=== PATIENT | female | born 1950 | race Caucasian/White ===

== ENCOUNTER 2017-12-18 13:45 | Observation (INO) | payer OTHER ==
[~2017-12-18] VITALS: Ht 149.9 cm; Wt 81.8 kg
--- NOTE | 2017-12-18 14:44 | EMERGENCY ROOM VISIT NOTE ---
History Report prepared by Hiram: Shahzad Watosn Under the Supervision of: Dr. Douglas Ewing M.D. First contact with patient: 14:08 Chief Complaint: PAIN (GENERALIZED) Stated Complaint: NUMBESS AND TINGLING DOWN BODY History of Present Illness The patient is a 67 year old female who presents to the Emergency Room with complaints of worsening generalized numbness that began a couple of days ago. She rates her discomfort as an 8/10 in severity. The patient states that the numbness is located around her nose, lips, ears, arms, legs, and chest. The patient reports the numbing sensation is worse on her left side. She describes the sensation as if "novocaine is wearing off". The patient states that feeling starts off as a "hot feeling" which turns into a numbness. She states that she woke up with this morning with the numbness and reports the sensation has been constant since. She states that last night she experienced a headache. The patient states that she took an Ibuprofen for her headache without any relief. The patient states that she has also been experiencing back pain between her shoulder blades that started on the way to the ED. She reports that she is currently experiencing chest pain. The patient denies similar symptoms in the past, LOC, fevers, chills, diaphoresis, visual changes, neck pain, breathing difficulties, nausea, vomiting, abdominal pain, melena, hematochezia, urinary symptoms, weakness, lymphadenopathy, rash, or other complaints. She denies a history of TIA and stroke, but reports a history of MS and RA. She states she was diagnosed with MS at [facility] in 1979. The patient states her MS has been in remission since. Source of History: patient Onset: a couple of days ago Position: other (global) Symptom Intensity: 8/10 Quality: numbness Timing: worsening Associated Symptoms: + headache, + chest pain, + back pain Review of Systems See HPI for pertinent positives and negatives. A total of ten systems were reviewed and were otherwise negative. Past Medical & Surgical Medical Problems: (1) Acute pharyngitis (2) Laryngitis (3) Laryngitis (4) Multiple back surgeries (5) Multiple sclerosis (6) Rheumatoid arthritis Surgical Problems: (1) History of cervical spinal surgery (2) History of cholecystectomy Family History Diabetes mellitus Heart disease Hypertension Social History Smoking Status: Former Smoker Alcohol Use: none Occupation Status: unemployed Current/Historical Medications Scheduled Calcium Carbonate (Os-Ramon 500), 500 MG PO DAILY Cholecalciferol (Vitamin D3), Unknown Dose PO DAILY Cyclobenzaprine Hcl (Flexeril), 1 TAB PO HS Cyclosporine (Ophth) (Restasis), 1 DROP OPB BID Doxazosin Mesylate (Cardura), 4 MG PO DAILY Duloxetine Hcl (Cymbalta), 60 MG PO DAILY Ferrous Sulfate (Iron), 1 TAB PO DAILY Levothyroxine Sodium (Synthroid), 75 MCG PO DAILY Losartan Potassium (Cozaar), 100 MG PO DAILY Meloxicam (Mobic), 15 MG PO DAILY Omeprazole (Prilosec), 20 MG PO DAILY Allergies Coded Allergies: Vancomycin (Verified Allergy, Severe, HIVES, 12/18/17) Penicillins (Verified Allergy, Mild, ., 04/02/14) Hydroxychloroquine (Verified Allergy, Unknown, HIVES, 12/18/17) Latex1 -Allergic Contact Dermititis (Verified Allergy, Unknown, HIVES, ) Physical Exam Vital Signs Date Time Temp Pulse Resp B/P (MAP) Pulse Ox O2 Delivery O2 Flow Rate FiO2 12/18/17 17:15 89 27 88 12/18/17 17:09 92 18 136/93 95 Room Air 12/18/17 17:07 136/93 12/18/17 15:15 92 22 93 12/18/17 15:04 92 12/18/17 14:51 94 Room Air 12/18/17 13:49 36.8 110 20 147/86 93 Room Air Physical Exam GENERAL: Awake, alert, well appearing, no distress HENT: Normocephalic, atraumatic. TM's normal. Oropharynx unremarkable. EYES: PERRL. EOMI. Normal conjunctiva. Sclera non-icteric. NECK: Supple. No nuchal rigidity. FROM. No bruit. RESPIRATORY: Breath sounds equal. No wheezes. No rhonchi. CARDIAC: Normal rate. Regular rhythm. No murmurs. No rubs. No JVD. GI: Soft, non distended. No tenderness to palpation. No rebound or guarding. No masses. RECTAL: Deferred. MUSCULOSKELETAL: Unremarkable. No edema. No discoloration. Gross motor strength symmetric. Left upper extremity is in a shoulder immobilizer. Unable to asses range of motion of the left upper extremity secondary to preexisting shoulder injury. NEURO: Cranial nerves 2-12 grossly intact. Normal sensorium. No motor deficits noted. Speech normal. No pronator drift. Numbness in left hand which patient states is chronic. Subjective numbness in the left face and perioral region. SKIN: No rash or jaundice noted. LYMPH: No adenopathy. Medical Decision & Procedures ER Provider Diagnostic Interpretation: Radiology results as stated below per my review and radiologist interpretation: CHEST ONE VIEW PORTABLE CLINICAL HISTORY: Weakness COMPARISON STUDY: No previous studies for comparison. FINDINGS: The cardiac and mediastinal contours are normal. There is no evidence of focal pulmonary consolidation. There is no evidence of failure. No pleural effusions are visualized.[ There are bilateral shoulder arthroplasties. There is significant lucency surrounding the humeral component of the left shoulder arthroplasty. IMPRESSION: No active disease in the chest. Electronically signed by: Sebastian Stafford M.D. 12/18/2017 2:49 PM Dictated Date/Time: 12/18/2017 2:[address] HEAD WITHOUT CONTRAST (CT) CLINICAL HISTORY: Weakness, numbness. COMPARISON STUDY: No previous studies for comparison. TECHNIQUE: Axial CT of the brain is performed from the vertex to the skull base. IV contrast was not administered for this examination. A dose lowering technique was utilized adhering to the principles of ALARA. CT DOSE: 614.27 mGy.cm FINDINGS: No intra or extra-axial mass lesions are visualized. There is no CT evidence of acute cortical infarction. There is no evidence of midline shift. There is no acute hemorrhage. No calvarial fractures are visualized. There are patchy white matter hypodensities likely on a small vessel basis. There is no evidence of pathologic ventricular dilatation. There is no evidence of acute sinusitis. There are postsurgical changes within the upper cervical spine and skull base IMPRESSION: No acute intracranial findings Electronically signed by: Sebastian Stafford M.D. 12/18/2017 3:50 PM Dictated Date/Time: 12/18/2017 3:49 PM Laboratory Results 12/18/17 15:20 Red Blood Count 4.17, Mean Corpuscular Volume 90.4, Mean Corpuscular Hemoglobin 30.7, Mean Corpuscular Hemoglobin Concent 34.0, Mean Platelet Volume 8.9, Neutrophils (%) (Auto) 70.5, Lymphocytes (%) (Auto) 19.1, Monocytes (%) (Auto) 6.5, Eosinophils (%) (Auto) 3.2, Basophils (%) (Auto) 0.4, Neutrophils # (Auto) 4.81, Lymphocytes # (Auto) 1.30, Monocytes # (Auto) 0.44, Eosinophils # (Auto) 0.22, Basophils # (Auto) 0.03 12/18/17 15:20 Test 12/18/17 14:50 12/18/17 15:20 Urine Color YELLOW Urine Appearance CLOUDY (CLEAR) Urine pH 6.5 (4.5-7.5) Urine Specific [place] 1.006 (1.000-1.030) Urine Protein NEG (NEG) Urine Glucose (UA) NEG (NEG) Urine Ketones NEG (NEG) Urine Occult Blood NEG (NEG) Urine Nitrite NEG (NEG) Urine Bilirubin NEG (NEG) Urine Urobilinogen NEG (NEG) Urine Leukocyte Esterase NEG (NEG) Urine WBC (Auto) 0 /hpf (0-5) Urine RBC (Auto) 0-4 /hpf (0-4) Urine Hyaline Casts (Auto) 0 /lpf (0-5) Urine Epithelial Cells (Auto) 5-10 /lpf (0-5) Urine Bacteria (Auto) NEG (NEG) White Blood Count 6.82 K/uL (4.8-10.8) Red Blood Count 4.17 M/uL (4.2-5.4) Hemoglobin 12.8 g/dL (12.0-16.0) Hematocrit 37.7 % (37-47) Mean Corpuscular Volume 90.4 fL (80-100) Mean Corpuscular Hemoglobin 30.7 pg (25-34) Mean Corpuscular Hemoglobin Concent 34.0 g/dl (32-36) Platelet Count 366 K/uL (130-400) Mean Platelet Volume 8.9 fL (7.4-10.4) Neutrophils (%) (Auto) 70.5 % Lymphocytes (%) (Auto) 19.1 % Monocytes (%) (Auto) 6.5 % Eosinophils (%) (Auto) 3.2 % Basophils (%) (Auto) 0.4 % Neutrophils # (Auto) 4.81 K/uL (1.4-6.5) Lymphocytes # (Auto) 1.30 K/uL (1.2-3.4) Monocytes # (Auto) 0.44 K/uL (0.11-0.59) Eosinophils # (Auto) 0.22 K/uL (0-0.5) Basophils # (Auto) 0.03 K/uL (0-0.2) RDW Standard Deviation 44.8 fL (36.4-46.3) RDW Coefficient of Variation 13.4 % (11.5-14.5) Immature Granulocyte % (Auto) 0.3 % Immature Granulocyte # (Auto) 0.02 K/uL (0.00-0.02) Prothrombin Time 9.6 SECONDS (9.0-12.0) Prothromb Time International Ratio 0.9 (0.9-1.1) Activated Partial Thromboplast Time 29.8 SECONDS (21.0-31.0) Partial Thromboplastin Ratio 1.1 Anion Gap 7.0 mmol/L (3-11) Est Creatinine Clear Calc Drug Dose 62.7 ml/min Estimated GFR () 86.5 Estimated GFR (Non- 74.6 BUN/Creatinine Ratio 16.6 (10-20) Calcium Level 9.0 mg/dl (8.5-10.1) Magnesium Level 2.4 mg/dl (1.8-2.4) Total Bilirubin 0.2 mg/dl (0.2-1) Direct Bilirubin < 0.1 mg/dl (0-0.2) Aspartate Amino Transf (AST/SGOT) 14 U/L (15-37) Alanine Aminotransferase (ALT/SGPT) 15 U/L (12-78) Alkaline Phosphatase 113 U/L (45-117) Total Creatine Kinase 67 U/L (26-192) Creatine Kinase MB 1.5 ng/ml (0.5-3.6) Creatine Kinase MB Ratio 2.2 (0-3.0) Troponin I < 0.015 ng/ml (0-0.045) Total Protein 7.3 gm/dl (6.4-8.2) Albumin 3.6 gm/dl (3.4-5.0) Lipase 118 U/L (73-393) Thyroid Stimulating Hormone (TSH) 1.890 uIu/ml (0.300-4.500) Laboratory results reviewed by me Medications Administered Medications (Trade) Dose Ordered Sig/Tio Route Start Time Stop Time Status Last Admin Dose Admin Aspirin (Aspirin Chew) 324 mg NOW STAT PO 12/18/17 16:42 12/18/17 16:43 DC 12/18/17 17:07 324 MG ECG Per My Interpretation Indication: chest pain Rate (beats per minute): 96 Rhythm: normal sinus Findings: no acute ischemic change, no ectopy, other (Normal intervals) ED Course 1411: The patient was evaluated in room C12B. A complete history and physical exam was performed. 1638: I reevaluated the patient and she is doing well. I discussed her findings and treatment plan, which she agrees to. She will be further evaluated. 164: Ordered Aspirin 324 mg PO. 1645: I discussed the patients with Dr. Rhodes, [facility] Hospitalist. She understands the patients condition and agrees to accept the patient. The patient will be further evaluated. Medical Decision Triage Nursing notes reviewed. The patient's presentation and history were concerning for numbness, chest and back discomfort. Etiologies such as electrolyte abnormalities, cardiac sources, intracerebral event, MS, metabolic, infection, hypo/hyperglycemia, toxicologic, neurologic, as well as others were entertained. The patient was evaluated. She complained of numbness sensation that seemed to be mostly left-sided but did note some generalized perioral numbness. She had chest discomfort and back discomfort. Blood work, urinalysis, imaging and ECG obtained. The patient's CBC and chemistry panel were unremarkable. The patient had no significant abnormalities on laboratory workup. She had a head CT which did not show any acute findings. ECG was without ischemia. She notes vague neurologic symptoms that are more left sided. This concerning and further workup would be reasonable. She also had chest pain and back pain. I discussed this with the patient and family. She was given aspirin. Consultation was made with internal medicine. The patient was evaluated in the Emergency Room for further management. Medication Reconcilliation Current Medication List: was personally reviewed by me Blood Pressure Screening Patient's blood pressure: Elevated blood pressure Referred to Hospitalist. Impression Primary Impression: Left sided numbness Additional Impressions: Substernal chest pain Back pain Scribe Attestation The scribe's documentation has been prepared under my direction and personally reviewed by me in its entirety. I confirm that the note above accurately reflects all work, treatment, procedures, and medical decision making performed by me. Departure Information Dispostion Being Evaluated By Hospitalist Referrals Kathy Handley M.D. (PCP) Patient Instructions [facility] Problem Qualifiers
--- NOTE | 2017-12-18 14:50 | DIAGNOSTIC IMAGING REPORT ---
CHEST ONE VIEW PORTABLE CLINICAL HISTORY: Weakness COMPARISON STUDY: No previous studies for comparison. FINDINGS: The cardiac and mediastinal contours are normal. There is no evidence of focal pulmonary consolidation. There is no evidence of failure. No pleural effusions are visualized.[ There are bilateral shoulder arthroplasties. There is significant lucency surrounding the humeral component of the left shoulder arthroplasty. IMPRESSION: No active disease in the chest. Electronically signed by: Sebastian Stafford M.D. 12/18/2017 2:49 PM Dictated Date/Time: 12/18/2017 2:48 PM
[2017-12-18 15:35] LABS: BASO % 0.4 %; BASO ABS # 0.03 K/uL (0-0.2); EOS % 3.2 %; EOS ABS # 0.22 K/uL (0-0.5); HEMATOCRIT 37.7 % (37-47); HEMOGLOBIN 12.8 g/dL (12.0-16.0); IG# 0.02 K/uL (0.00-0.02); LYMPH % 19.1 %; MEAN CELL VOLUME 90.4 fL (80-100); MEAN CORPUSCULAR HEMOGLOBIN 30.7 pg (25-34); MEAN PLATELET VOLUME 8.9 fL (7.4-10.4); MONO % 6.5 %; MONO ABS # 0.44 K/uL (0.11-0.59); NEUT % 70.5 %; NEUT ABS # 4.81 K/uL (1.4-6.5); PLATELET COUNT 366 K/uL (130-400); RED CELL DISTRIBUTION WIDTH CV 13.4 % (11.5-14.5); RED CELL DISTRIBUTION WIDTH SD 44.8 fL (36.4-46.3); WHITE BLOOD COUNT 6.82 K/uL (4.8-10.8)
[2017-12-18 15:44] LABS: INR 0.9 (0.9-1.1); PTT PATIENT 29.8 SECONDS (21.0-31.0)
--- NOTE | 2017-12-18 15:51 | DIAGNOSTIC IMAGING REPORT ---
CT HEAD WITHOUT CONTRAST (CT) CLINICAL HISTORY: Weakness, numbness. COMPARISON STUDY: No previous studies for comparison. TECHNIQUE: Axial CT of the brain is performed from the vertex to the skull base. IV contrast was not administered for this examination. A dose lowering technique was utilized adhering to the principles of ALARA. CT DOSE: 614.27 mGy.cm FINDINGS: No intra or extra-axial mass lesions are visualized. There is no CT evidence of acute cortical infarction. There is no evidence of midline shift. There is no acute hemorrhage. No calvarial fractures are visualized. There are patchy white matter hypodensities likely on a small vessel basis. There is no evidence of pathologic ventricular dilatation. There is no evidence of acute sinusitis. There are postsurgical changes within the upper cervical spine and skull base IMPRESSION: No acute intracranial findings Electronically signed by: Sebastian Stafford M.D. 12/18/2017 3:50 PM Dictated Date/Time: 12/18/2017 3:49 PM
[2017-12-18 15:54] LABS: BLOOD UREA NITROGEN 13 mg/dl (7-18); CREATININE 0.81 mg/dl (0.60-1.20); GLUCOSE 101 mg/dl (70-99)
[2017-12-18 15:55] LABS: ALBUMIN 3.6 gm/dl (3.4-5.0); ALT/SGPT 15 U/L (12-78); CARBON DIOXIDE 28 mmol/L (21-32); LIPASE 118 U/L (73-393); SODIUM 140 mmol/L (136-145)
[2017-12-18 16:03] LABS: ALKALINE PHOSPHATASE 113 U/L (45-117); AST/SGOT 14 U/L (15-37); CKMB 1.5 ng/ml (0.5-3.6); TOTAL PROTEIN 7.3 gm/dl (6.4-8.2)
[2017-12-18] MEDS ORDERED: PRLSR20 PO (16:25)
[2017-12-18] MEDS ORDERED: CALC12502 PO (16:25)
[2017-12-18] MEDS ORDERED: FERR1TAB23 PO (16:25)
[2017-12-18] MEDS ORDERED: LEVO75TA PO (16:25)
[2017-12-18] MEDS ORDERED: DOXA4TAB2 PO (16:25)
[2017-12-18] MEDS ORDERED: LOSA100T65 PO (16:25)
[2017-12-18] MEDS ORDERED: CYCL0.052 OPB (16:25)
[2017-12-18] MEDS ORDERED: CYCL10TA6 PO (16:25)
[2017-12-18] MEDS ORDERED: MELO-84 PO (16:25)
[2017-12-18] MEDS ORDERED: DULO60CA44 PO (16:25)
[2017-12-18] MEDS ORDERED: CHOL1000 PO (16:25)
[2017-12-18] MEDS ORDERED: ASPIRIN 81 MG CHEW PO STA (16:42)
[2017-12-18] MEDS ORDERED: ACETAMINOPHEN 325 MG TAB PO PRN (17:45)
[2017-12-18] MEDS ORDERED: ONDANSETRON INJ 2 MG/ML 2 ML VIAL IV PRN (17:45)
[2017-12-18] MEDS ORDERED: PHARMACIST DISCHARGE MED REC CONSULT PRN (17:45)
[2017-12-18] MEDS ORDERED: MAGNESIUM HYDROXIDE SUSP 30 ML UDC PO PRN (17:45)
--- NOTE | 2017-12-18 17:58 | History and Physical ---
History & Physical Date & Time of Service: Dec 18, 2017 at 17:42 Chief Complaint: Numbess And Tingling Down Body Primary Care Physician: Reg Estrella History of Present Illness Source: patient 67 y/o F c/o L sided numbness and tingling. Pt states she initially noted n/t around her lips about 1 week ago after 3 days of mucinex DM use. She stopped taking this, but the n/t continued. Yesterday, she developed n/t along the entire L side of her face that she compares to being similar to having novocaine wearing off after a dental procedure. She also noted increased n/t to her L fingers and at times down her L LE. Pt has had several surgeries and infections of a L shoulder surgical site and has had n/t to her L hand for some time, but this was more intense. She does wear a sling generally while she awaits further surgical intervention "they keep screwing around and delaying it ". She has no facial paralysis or ticks, no confusion or speech issues. Pt was dx with MS in 1979. She did not have n/t with this dx. Her sx leading to dx were syncope and ambulatory issues. She has not had anything similar with the n/t. She does not take medications for her MS and has not seen a neurologist "in years" as she has not had any major flares. 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 She states that this was recently evaluated and it is stable. Pt states she gets SOB with prolonged housework, but not with usual walking or at rest. She did have some substernal chest pain that radiated to her shoulder blades earlier today, but this has resolved. Pt denies fever, abd pain, n/v/c/d , LE pain or swelling. Past Medical/Surgical History MS RA--off of meds while awaiting L shoulder surgery L shoulder immobility, awaiting 2nd opinion and possibly further OR. s/p several procedures and infection Hypothyroid GERD Iron deficiency b/l lung nodules, recently dx as an incidental finding with plans for f/u CT to monitor Family History Family history was reviewed; no changes noted. Social History Smoking Status: Former Smoker (quit x39 years) Alcohol Use: none Drug Use: none Occupational Status: unemployed Allergies Coded Allergies: Vancomycin (Verified Allergy, Severe, HIVES, 12/18/17) Penicillins (Verified Allergy, Mild, ., 04/02/14) Hydroxychloroquine (Verified Allergy, Unknown, HIVES, 12/18/17) Latex1 -Allergic Contact Dermititis (Verified Allergy, Unknown, HIVES, ) Home Medications Scheduled Calcium Carbonate (Os-Ramon 500), 500 MG PO DAILY Cholecalciferol (Vitamin D3), Unknown Dose PO DAILY Cyclobenzaprine Hcl (Flexeril), 1 TAB PO HS Cyclosporine (Ophth) (Restasis), 1 DROP OPB BID Doxazosin Mesylate (Cardura), 4 MG PO DAILY Duloxetine Hcl (Cymbalta), 60 MG PO DAILY Ferrous Sulfate (Iron), 1 TAB PO DAILY Levothyroxine Sodium (Synthroid), 75 MCG PO DAILY Losartan Potassium (Cozaar), 100 MG PO DAILY Meloxicam (Mobic), 15 MG PO DAILY Omeprazole (Prilosec), 20 MG PO DAILY Review of Systems Pertinent positives and negatives reviewed in HPI--all others negative Physical Exam Vital Signs Date Time Temp Pulse Resp B/P (MAP) Pulse Ox O2 Delivery O2 Flow Rate FiO2 12/18/17 17:09 92 18 136/93 95 Room Air 12/18/17 15:04 92 12/18/17 14:51 94 Room Air 12/18/17 13:49 36.8 110 20 147/86 93 Room Air General Appearance: WD/WN, no apparent distress Head: normocephalic, atraumatic Eyes: normal inspection, sclerae normal Respiratory/Chest: normal breath sounds, no respiratory distress Cardiovascular: regular rate, rhythm, no edema Abdomen/GI: non tender, soft Extremities/Musculoskelatal: no calf tenderness, no pedal edema Neurologic/Psych: crepe sole scourer II-XII nml as tested, alert, normal mood/affect, oriented x 3 Skin: normal color, warm/dry Diagnostics Laboratory Results Results Past 24 Hours Test 12/18/17 14:50 12/18/17 15:20 12/18/17 17:38 Range/Units Urine Color YELLOW Urine Appearance CLOUDY CLEAR Urine pH 6.5 4.5-7.5 Urine Specific [place] 1.006 1.000-1.030 Urine Protein NEG NEG Urine Glucose (UA) NEG NEG Urine Ketones NEG NEG Urine Occult Blood NEG NEG Urine Nitrite NEG NEG Urine Bilirubin NEG NEG Urine Urobilinogen NEG NEG Urine Leukocyte Esterase NEG NEG Urine WBC (Auto) 0 0-5 /hpf Urine RBC (Auto) 0-4 0-4 /hpf Urine Hyaline Casts (Auto) 0 0-5 /lpf Urine Epithelial Cells (Auto) 5-10 0-5 /lpf Urine Bacteria (Auto) NEG NEG White Blood Count 6.82 4.8-10.8 K/uL Red Blood Count 4.17 4.2-5.4 M/uL Hemoglobin 12.8 12.0-16.0 g/dL Hematocrit 37.7 37-47 % Mean Corpuscular Volume 90.4 80-100 fL Mean Corpuscular Hemoglobin 30.7 25-34 pg Mean Corpuscular Hemoglobin Concent 34.0 32-36 g/dl Platelet Count 366 130-400 K/uL Mean Platelet Volume 8.9 7.4-10.4 fL Neutrophils (%) (Auto) 70.5 % Lymphocytes (%) (Auto) 19.1 % Monocytes (%) (Auto) 6.5 % Eosinophils (%) (Auto) 3.2 % Basophils (%) (Auto) 0.4 % Neutrophils # (Auto) 4.81 1.4-6.5 K/uL Lymphocytes # (Auto) 1.30 1.2-3.4 K/uL Monocytes # (Auto) 0.44 0.11-0.59 K/uL Eosinophils # (Auto) 0.22 0-0.5 K/uL Basophils # (Auto) 0.03 0-0.2 K/uL RDW Standard Deviation 44.8 36.4-46.3 fL RDW Coefficient of Variation 13.4 11.5-14.5 % Immature Granulocyte % (Auto) 0.3 % Immature Granulocyte # (Auto) 0.02 0.00-0.02 K/uL Prothrombin Time 9.6 9.0-12.0 SECONDS Prothromb Time International Ratio 0.9 0.9-1.1 Activated Partial Thromboplast Time 29.8 21.0-31.0 SECONDS Partial Thromboplastin Ratio 1.1 Sodium Level 140 136-145 mmol/L Potassium Level 4.0 3.5-5.1 mmol/L Chloride Level 106 98-107 mmol/L Carbon Dioxide Level 28 21-32 mmol/L Anion Gap 7.0 3-11 mmol/L Blood Urea Nitrogen 13 7-18 mg/dl Creatinine 0.81 0.60-1.20 mg/dl Est Creatinine Clear Calc Drug Dose 62.7 ml/min Estimated GFR () 86.5 Estimated GFR (Non- 74.6 BUN/Creatinine Ratio 16.6 10-20 Random Glucose 101 70-99 mg/dl Calcium Level 9.0 8.5-10.1 mg/dl Magnesium Level 2.4 1.8-2.4 mg/dl Total Bilirubin 0.2 0.2-1 mg/dl Direct Bilirubin < 0.1 0-0.2 mg/dl Aspartate Amino Transf (AST/SGOT) 14 15-37 U/L Alanine Aminotransferase (ALT/SGPT) 15 12-78 U/L Alkaline Phosphatase 113 45-117 U/L Total Creatine Kinase 67 26-192 U/L Creatine Kinase MB 1.5 0.5-3.6 ng/ml Creatine Kinase MB Ratio 2.2 0-3.0 Troponin I < 0.015 0-0.045 ng/ml Total Protein 7.3 6.4-8.2 gm/dl Albumin 3.6 3.4-5.0 gm/dl Lipase 118 73-393 U/L Thyroid Stimulating Hormone (TSH) 1.890 0.300-4.500 uIu/ml Microbiology Results 12/18/17 Urine Culture, Received Pending Diagnostic Radiology CT head neg for acute CXR neg for acute Impression Assessment and Plan 67 y/o F who was admitted for observation on 12/18 for L sided numbness/tingling L sided n/t: CVA vs MS flare seem most likely dx CBC, PRP, TSH WNL Trop neg CT head neg for acute CXR and UA neg, urine cx pending MRI/MRA pending Neuro c/s pending PT/OT MS: no hx of medication use Does not follow with neuro due to stability L shoulder immobility: awaiting further OR intervention s/p multiple surgeries and infection Hypothyroid: TSH WNL RA: no current medications for this due to shoulder issues Other: Full code. Pt does not want prolonged mechanical life support or feeding tubes. Daughter is present and agrees AHA diet SCDs for DVT proph Level of Care Telemetry Resuscitation Status FULL RESUSCITATION VTE Prophylaxis VTE Risk Assessment Done? Y/N: Yes Risk Level: Low
[2017-12-18] MEDS ORDERED: IV FLUIDS COMPLETED PRN (19:00)
--- NOTE | 2017-12-18 19:21 | DIAGNOSTIC IMAGING REPORT ---
MR ANGIOGRAPHY OF THE [place] NO CONTRAST CLINICAL HISTORY: Stroke. Left-sided numbness. COMPARISON STUDY: None. A 3-D [id number] MR angiographic sequence of the [place] was performed. Both the source and projection images were reviewed. There is no evidence of major intracranial branch occlusion. There is no evidence of intracranial stenosis. There are no lesions suspicious for aneurysm. IMPRESSION: Unremarkable MR angiography of the [place]. Electronically signed by: Sebastian Stafford M.D. 12/18/2017 7:20 PM Dictated Date/Time: 12/18/2017 7:18 PM
--- NOTE | 2017-12-18 20:10 | DIAGNOSTIC IMAGING REPORT ---
MRI OF THE BRAIN WITHOUT AND WITH IV CONTRAST CLINICAL HISTORY: Stroke COMPARISON STUDY: Noncontrast head CT December 18, 2017 TECHNIQUE: MRI of the brain was performed from the vertex to the skull base utilizing various T1 and T2 weighted sequences. Following the IV administration of 8 mL of Gadavist contrast, additional enhanced images were obtained. FINDINGS: There is occipital artifact secondary to metallic plate seen within the occipital bone and upper cervical spine Sagittal T1, axial diffusion, proton density and T2 weighted axial, coronal FLAIR, and pre and post axial T1-weighted images were acquired. These were supplemented with post gadolinium coronal T1 weighted images. No intra or extra-axial mass lesions are visualized. Axial diffusion-weighted images reveal no evidence of acute or subacute infarction. There is no evidence of ventricular dilatation. Proton density T2-weighted and FLAIR images reveal scattered foci of increased T2 signal within the white matter, likely on a small vessel basis. There are no abnormal flow voids. There is no evidence of pathologic enhancement. There is a right parietal scalp nodule likely representing a sebaceous cyst IMPRESSION: 1. No evidence of acute or subacute infarction 2. No evidence of intracranial mass 3. Moderate foci of increased T2 signal within the white matter. This could be secondary to small vessel ischemic disease, or a demyelinating process Electronically signed by: Sebastian Stafford M.D. 12/18/2017 8:09 PM Dictated Date/Time: 12/18/2017 8:06 PM
--- NOTE | 2017-12-18 20:13 | DIAGNOSTIC IMAGING REPORT ---
NECK MRA HISTORY: Left-sided numbness suspected stroke TECHNIQUE: [id number] and gadolinium-enhanced MRA of the neck was performed both before and after the intravenous administration of contrast. All measurements were calculated based on NASCET criteria. The patient was administered 8 cc of intravenous Gadavist COMPARISON STUDY: None. FINDINGS: The aortic arch and proximal great vessels are widely patent. There is no significant stenosis, occlusion, or dissection identified within the bilateral common carotid, internal carotid, or vertebral arteries. IMPRESSION: No significant stenosis, occlusion, or dissection identified within the carotid or vertebral arteries. Electronically signed by: Sebastian Stafford M.D. 12/18/2017 8:12 PM Dictated Date/Time: 12/18/2017 8:10 PM
[2017-12-18 20:20] VITALS: BP 148/90; PULSE 92; TEMP 37.1; O2SAT 96; Ht 149.9 cm; Wt 81.8 kg
[2017-12-18] MEDS ORDERED: CYCLOBENZAPRINE HCL 10 MG TAB PO SCH (21:00)
[2017-12-18] MEDS: RESTASIS~ORDER AWAITING ACTION SCH (21:15)
[2017-12-18 23:56] VITALS: BP 149/81; PULSE 90; TEMP 36.8; O2SAT 94
[2017-12-19 04:47] VITALS: BP 134/76; PULSE 86; TEMP 36.7; O2SAT 91
[2017-12-19] MEDS ORDERED: LEVOTHYROXINE 75 MCG TAB PO SCH (06:00)
[2017-12-19 07:49] VITALS: BP 145/86; PULSE 89; TEMP 36.7; O2SAT 93
[2017-12-19 07:50] LABS: BASO % 0.7 %; BASO ABS # 0.05 K/uL (0-0.2); EOS % 4.9 %; EOS ABS # 0.35 K/uL (0-0.5); HEMATOCRIT 37.7 % (37-47); HEMOGLOBIN 12.8 g/dL (12.0-16.0); IG# 0.01 K/uL (0.00-0.02); LYMPH % 23.1 %; LYMPH ABS # 1.65 K/uL (1.2-3.4); MEAN CORPUSCULAR HEMOGLOBIN 30.5 pg (25-34); MEAN PLATELET VOLUME 8.9 fL (7.4-10.4); MONO % 8.3 %; MONO ABS # 0.59 K/uL (0.11-0.59); NEUT % 62.9 %; PLATELET COUNT 354 K/uL (130-400); RED CELL DISTRIBUTION WIDTH CV 13.5 % (11.5-14.5); RED CELL DISTRIBUTION WIDTH SD 44.6 fL (36.4-46.3); WHITE BLOOD COUNT 7.15 K/uL (4.8-10.8)
[2017-12-19] MEDS: RESTASIS~ORDER AWAITING ACTION SCH (08:00)
[2017-12-19 08:24] LABS: CALCIUM 8.9 mg/dl (8.5-10.1); CREATININE 0.77 mg/dl (0.60-1.20); POTASSIUM 3.9 mmol/L (3.5-5.1)
[2017-12-19] MEDS ORDERED: MELOXICAM 7.5 MG TAB PO SCH (09:00)
[2017-12-19] MEDS ORDERED: DULOXETINE HCL 60 MG CAP PO SCH (09:00)
[2017-12-19] MEDS ORDERED: CHOLECALCIFEROL 1000 INTER.UNIT TAB PO SCH (09:00)
[2017-12-19] MEDS ORDERED: CALCIUM CARBONATE 1250MG TAB PO SCH (09:00)
[2017-12-19] MEDS ORDERED: DOXAZosin MESYLATE TAB 4 MG TAB PO SCH (09:00)
[2017-12-19] MEDS ORDERED: FERROUS SULFATE 325 MG TAB PO SCH (09:00)
[2017-12-19] MEDS ORDERED: PANTOprazole SOD 40 MG TAB PO SCH (09:00)
[2017-12-19] MEDS ORDERED: LOSARTAN POTASSIUM 50 MG TAB PO SCH (09:00)
--- NOTE | 2017-12-19 10:30 | Neurology Consultation ---
Neurology Consultation Date of Consultation: Dec 19, 2017. Attending Physician: Pamela Rhodes DO Primary Care Physician: Reg Estrella Reason for Consultation: Numbness and tingling History of Present Illness Source: patient The patient is a 67-year-old female with a chief complaint of numbness. She complains of numbness affecting the left side of her face, especially around her nose and mouth, which began about 1 week ago. This symptom has been persistent and seemed to intensify 2 days ago. She has a history of chronic neck and left shoulder pain and has undergone multilevel cervical fusion about 10 years ago which left her with significant loss of motion. She is also currently being followed by an orthopedist for her left shoulder which requires additional surgical intervention. She has been wearing a left upper extremity brace with a sling that wraps around the right side of her neck since this past August. She complains that the sling is uncomfortable and does seem to aggravate her chronic neck pain. Past medical history is also notable for rheumatoid arthritis as well as he stated diagnosis of multiple sclerosis that was made in the . The patient recalls neurological evaluations at that time including a lumbar puncture area she recalls treatment with corticosteroids for this issue in the past. She has never been treated with moderate disease modifying therapies but indicates that her MS has been stable. She does not recall a history of optic neuritis. She does not have significant issues with bladder control. She does report chronic problems with mobility for which he uses either a cane or walker. Past Medical/Surgical History Medical Problems: (1) Back pain Status: Acute (2) Left sided numbness Status: Acute (3) Substernal chest pain Status: Acute Family History Family history notable for diabetes mellitus and coronary artery disease Social History Alcohol Use: none Drug Use: none Occupation Status: unemployed Allergies Coded Allergies: Vancomycin (Verified Allergy, Severe, HIVES, 12/18/17) Penicillins (Verified Allergy, Mild, ., 04/02/14) Hydroxychloroquine (Verified Allergy, Unknown, HIVES, 12/18/17) Latex1 -Allergic Contact Dermititis (Verified Allergy, Unknown, HIVES, ) Current Inpatient Medications Current Inpatient Medications Medications (Trade) Dose Ordered Sig/Tio Route Start Time Stop Time Status Last Admin Dose Admin Miscellaneous Information (Pharmacist Discharge Med Rec Consult) 1 ea UD PRN N/A 12/18/17 17:45 01/17/18 17:44 Acetaminophen (Tylenol Tab) 650 mg Q4H PRN PO 12/18/17 17:45 01/17/18 17:44 Magnesium Hydroxide (Milk Of Magnesia Susp) 30 ml Q12H PRN PO 12/18/17 17:45 01/17/18 17:44 Ondansetron HCl (Zofran Inj) 4 mg Q6H PRN IV 12/18/17 17:45 01/17/18 17:44 Calcium Carbonate (oS-Ramon 500 TAB) 1,250 mg DAILY PO 12/19/17 09:00 01/18/18 08:59 12/19/17 08:06 1,250 MG Cholecalciferol (Vitamin D Tab) 1,000 inter.unit DAILY PO 12/19/17 09:00 01/18/18 08:59 12/19/17 08:06 1,000 INTER.UNIT Cyclobenzaprine HCl (Flexeril Tab) 10 mg HS PO 12/18/17 21:00 01/17/18 20:59 12/18/17 21:15 10 MG Doxazosin Mesylate (Cardura Tab) 4 mg DAILY PO 12/19/17 09:00 01/18/18 08:59 12/19/17 08:06 4 MG Duloxetine HCl (Cymbalta Cap) 60 mg DAILY PO 12/19/17 09:00 01/18/18 08:59 12/19/17 08:06 60 MG Levothyroxine Sodium (Synthroid Tab) 75 mcg DAILYBB PO 12/19/17 06:00 01/18/18 05:59 12/19/17 05:53 75 MCG Losartan Potassium (coZAAR TAB) 100 mg DAILY PO 12/19/17 09:00 01/18/18 08:59 12/19/17 08:06 100 MG Meloxicam (Mobic Tab) 15 mg DAILY PO 12/19/17 09:00 01/18/18 08:59 12/19/17 08:05 15 MG Miscellaneous Information (Order Awaiting Action) 1 ea QS N/A 12/19/17 00:00 01/18/18 00:00 Ferrous Sulfate (Feosol Tab) 325 mg DAILY PO 12/19/17 09:00 01/18/18 08:59 2/25/18 08:06 325 MG Pantoprazole Sodium (Protonix Tab) 40 mg QAM PO 12/19/17 09:00 01/18/18 08:59 12/19/17 08:06 40 MG Miscellaneous (Iv Fluids Completed) 1 ea PRN PRN N/A 12/18/17 19:00 12/18/18 18:59 Review of Systems Constitutional: No fever or chills Eyes: No vision loss or diplopia Ears: No hearing loss or vertigo Cardiovascular: No chest pain or palpitations Respiratory: No coughing wheezing or shortness of breath Genitourinary: No incontinence Neurological: As per history of present illness Musculoskeletal: Significant for arthralgias and chronic neck pain Dermatologic: No lesions or rashes A full 10 point review of systems was obtained from this patient with pertinent positives and negatives described in the history of present illness and otherwise listed above. All remaining systems were reviewed and are negative. Physical Exam Vital Signs (Past 24 Hrs): Date Time Temp Pulse Resp B/P (MAP) Pulse Ox O2 Delivery O2 Flow Rate FiO2 12/19/17 07:49 36.7 89 18 145/86 (105) 93 Room Air 12/19/17 04:47 36.7 86 18 134/76 (95) 91 Room Air 12/19/17 04:00 Room Air 12/18/17 23:56 36.8 90 18 149/81 (103) 94 Room Air 12/18/17 23:30 Room Air 12/18/17 20:20 37.1 92 18 148/90 96 Room Air 12/18/17 18:40 36.8 97 21 145/100 93 12/18/17 18:15 97 21 12/18/17 17:47 145/100 12/18/17 17:45 87 15 93 12/18/17 17:15 89 27 88 12/18/17 17:09 92 18 136/93 95 Room Air 12/18/17 17:07 136/93 12/18/17 15:15 92 22 93 12/18/17 15:04 92 12/18/17 14:51 94 Room Air 12/18/17 13:49 36.8 110 20 147/86 93 Room Air The patient is a well-developed, well-nourished elderly female. She is sitting up in the bedside chair in no acute distress. She is alert and fully oriented. Recent and remote memory intact. Attention and concentration normal. Patient exhibits a normal spontaneous speech pattern as well as an age-appropriate fund of knowledge and normal vocabulary. Visual garcia full to confrontation. Visual acuity normal. Pupils equal round reactive to light and accommodation. Eye movements normal. No nystagmus. Facial sensation intact bilaterally for all 3 divisions of the trigeminal nerve. There is no facial droop. There is normal facial strength and symmetry. Hearing intact to finger rub bilaterally. Palate elevates to midline. Tongue protrudes to midline. Shoulder shrug strength intact bilaterally. Sensation intact to light touch, temperature, vibration, and proprioception for all 4 limbs. Deep tendon reflexes are hyperactive for the arms and legs in a symmetric fashion. Plantar responses are downgoing bilaterally. The second through fifth toes of the right foot have been amputated surgically in the remote past. There is no dysdiadochokinesia or dysmetria finger to nose on the right. Unable to assess the left due to chronic pain and immobility at the left shoulder. No dysmetria with heel to villagran bilaterally. Ophthalmoscopic examination reveals normal-appearing optic disks and posterior segments. No papilledema or hemorrhages. Carotid pulses normal bilaterally, no bruits to auscultation. Gait and station antalgic. Patient exhibits normal muscle strength and tone for all 4 limbs. Left upper extremity proximal strength testing limited due to chronic pain and immobility at the left shoulder. There is no atrophy. No abnormal movements observed. Arthritic deformity of the small joints of both hands appreciated. Laboratory Results Past 24 Hours: 12/19/17 07:30 Red Blood Count 4.19, Mean Corpuscular Volume 90.0, Mean Corpuscular Hemoglobin 30.5, Mean Corpuscular Hemoglobin Concent 34.0, Mean Platelet Volume 8.9, Neutrophils (%) (Auto) 62.9, Lymphocytes (%) (Auto) 23.1, Monocytes (%) (Auto) 8.3, Eosinophils (%) (Auto) 4.9, Basophils (%) (Auto) 0.7, Neutrophils # (Auto) 4.50, Lymphocytes # (Auto) 1.65, Monocytes # (Auto) 0.59, Eosinophils # (Auto) 0.35, Basophils # (Auto) 0.05 12/19/17 07:30 Test 12/18/17 14:50 12/18/17 15:20 12/19/17 07:30 Urine Color YELLOW Urine Appearance CLOUDY (CLEAR) Urine pH 6.5 (4.5-7.5) Urine Specific Jewett 1.006 (1.000-1.030) Urine Protein NEG (NEG) Urine Glucose (UA) NEG (NEG) Urine Ketones NEG (NEG) Urine Occult Blood NEG (NEG) Urine Nitrite NEG (NEG) Urine Bilirubin NEG (NEG) Urine Urobilinogen NEG (NEG) Urine Leukocyte Esterase NEG (NEG) Urine WBC (Auto) 0 /hpf (0-5) Urine RBC (Auto) 0-4 /hpf (0-4) Urine Hyaline Casts (Auto) 0 /lpf (0-5) Urine Epithelial Cells (Auto) 5-10 /lpf (0-5) Urine Bacteria (Auto) NEG (NEG) Prothrombin Time 9.6 SECONDS (9.0-12.0) Prothromb Time International Ratio 0.9 (0.9-1.1) Activated Partial Thromboplast Time 29.8 SECONDS (21.0-31.0) Partial Thromboplastin Ratio 1.1 Magnesium Level 2.4 mg/dl (1.8-2.4) Total Bilirubin 0.2 mg/dl (0.2-1) Direct Bilirubin < 0.1 mg/dl (0-0.2) Aspartate Amino Transf (AST/SGOT) 14 U/L (15-37) Alanine Aminotransferase (ALT/SGPT) 15 U/L (12-78) Alkaline Phosphatase 113 U/L (45-117) Total Creatine Kinase 67 U/L (26-192) Creatine Kinase MB 1.5 ng/ml (0.5-3.6) Creatine Kinase MB Ratio 2.2 (0-3.0) Total Protein 7.3 gm/dl (6.4-8.2) Albumin 3.6 gm/dl (3.4-5.0) Lipase 118 U/L (73-393) Thyroid Stimulating Hormone (TSH) 1.890 uIu/ml (0.300-4.500) Hepatitis C Antibody Screen NEG (NEG) White Blood Count 7.15 K/uL (4.8-10.8) Red Blood Count 4.19 M/uL (4.2-5.4) Hemoglobin 12.8 g/dL (12.0-16.0) Hematocrit 37.7 % (37-47) Mean Corpuscular Volume 90.0 fL (80-100) Mean Corpuscular Hemoglobin 30.5 pg (25-34) Mean Corpuscular Hemoglobin Concent 34.0 g/dl (32-36) Platelet Count 354 K/uL (130-400) Mean Platelet Volume 8.9 fL (7.4-10.4) Neutrophils (%) (Auto) 62.9 % Lymphocytes (%) (Auto) 23.1 % Monocytes (%) (Auto) 8.3 % Eosinophils (%) (Auto) 4.9 % Basophils (%) (Auto) 0.7 % Neutrophils # (Auto) 4.50 K/uL (1.4-6.5) Lymphocytes # (Auto) 1.65 K/uL (1.2-3.4) Monocytes # (Auto) 0.59 K/uL (0.11-0.59) Eosinophils # (Auto) 0.35 K/uL (0-0.5) Basophils # (Auto) 0.05 K/uL (0-0.2) RDW Standard Deviation 44.6 fL (36.4-46.3) RDW Coefficient of Variation 13.5 % (11.5-14.5) Immature Granulocyte % (Auto) 0.1 % Immature Granulocyte # (Auto) 0.01 K/uL (0.00-0.02) Anion Gap 7.0 mmol/L (3-11) Est Creatinine Clear Calc Drug Dose 64.8 ml/min Estimated GFR () 92.0 Estimated GFR (Non- 79.3 BUN/Creatinine Ratio 17.3 (10-20) Calcium Level 8.9 mg/dl (8.5-10.1) Troponin I < 0.015 ng/ml (0-0.045) Triglycerides Level 101 mg/dl (0-150) Cholesterol Level 238 mg/dl (0-200) HDL Cholesterol 52 mg/dl LDL Cholesterol, Calculated 166 mg/dl VLDL Cholesterol, Calculated 20 mg/dl Cholesterol/HDL Ratio 4.6 Imaging I reviewed the images and radiologist's interpretation of the recently completed brain MRI. The study reveals a moderate number of foci of increased T2 signal throughout the cerebral white matter. These changes are consistent with either chronic small vessel ischemic disease or demyelinating disease. No evidence of abnormal post contrast enhancement. No areas of restricted diffusion. No acute process. An MRA of the head and neck has also been completed. No significant abnormalities observed. No evidence of aneurysm, vasculitis, or vascular occlusion. Impression This is a 67-year-old female who complains of persistent left facial numbness for the past week occurring in the context of chronic neck and left shoulder pain with a history of multilevel cervical fusion, considerably reduced cervical mobility, and severe left shoulder arthropathy for which she has been wearing a left upper extremity sling which wraps around the right side of her neck. I do not find any evidence of numbness on her face despite her stated complaint. However, I suspect her reported sensory symptoms are cervicogenic in origin. There is no evidence of acute or subacute stroke or active demyelination on the recently completed brain MRI. Plan X-rays of the cervical spine MRI of the cervical spine with and without contrast If the above studies are negative for an acute process I would not have any further immediate recommendations. Continuing with her duloxetine, cyclobenzaprine, and meloxicam is appropriate. She will need to follow-up with her orthopedist on Wednesday as planned. I would not recommend treatment for her stated history of multiple sclerosis at this time. As there is no evidence of an acute MS exacerbation, I would not recommend corticosteroid therapy at this time. Please contact me if I may be of further assistance.
[2017-12-19 11:37] VITALS: BP 143/82; PULSE 100; TEMP 36.7; O2SAT 92
--- NOTE | 2017-12-19 11:48 | DIAGNOSTIC IMAGING REPORT ---
MRI CERVICAL SPINE COMBO CLINICAL HISTORY: Neck pain, numbness, myelopathy. TECHNIQUE: Sagittal and axial T1, T2 and STIR images were obtained. Imaging was performed before and after administration of 8 cc of intravenous Gadavist COMPARISON STUDY: No previous studies for comparison. There are no suspicious areas of marrow replacement. No intrinsic cervical cord lesions are visualized. C2-3: There is no evidence of disc bulge or focal herniation. There is no spinal or foraminal stenosis. C3-4: There is no evidence of disc bulge or focal herniation. There is no spinal or foraminal stenosis. C4-5: There are no disc bulges or focal herniations. There is no spinal or foraminal stenosis. C5-6 :There is a circumferential disc bulge. There is no significant spinal or foraminal stenosis. C6-7: There is a circumferential disc bulge. There is no significant spinal or foraminal stenosis C7-T1: There is no evidence of disc bulge or focal herniation. There is no evidence of spinal or foraminal stenosis. There is artifact secondary to extensive posterior spinal fusion. There are no pathologically enhancing lesions. IMPRESSION: 1. Postsurgical changes with evidence of a cervical/occipital fusion extending to the C5 level 2. Mild degenerative change 3. No cord lesions identified. No evidence of significant spinal stenosis Electronically signed by: Sebastian Stafford M.D. 12/19/2017 11:47 AM Dictated Date/Time: 12/19/2017 11:42 AM
--- NOTE | 2017-12-19 12:04 | DIAGNOSTIC IMAGING REPORT ---
C-SPINE ROUTINE 4 OR 5 VIEWS CLINICAL HISTORY: cervicalgia, numbness, myelopathy COMPARISON STUDY: No previous studies for comparison. FINDINGS: There is a cervical occipital fusion with C2-C5 pedicle screws and adjoining spinal rods. These attached to a occipital metallic plate and screws. There are multilevel degenerative changes. No fractures or subluxations are visualized. IMPRESSION: 1. Postsurgical change 2. Multilevel degenerative change 3. No fractures or subluxations identified Electronically signed by: Sebastian Stafford M.D. 12/19/2017 12:03 PM Dictated Date/Time: 12/19/2017 12:02 PM
[2017-12-19 14:38] VITALS: BP 143/82; PULSE 100; TEMP 36.7; O2SAT 92
--- NOTE | 2017-12-19 15:09 | Discharge Instructions ---
Discharge Instructions Date of Service Dec 19, 2017. Admission Reason for Admission: Left Sided Numbness Discharge Discharge Diagnosis / Problem: left sided numbess without any appearance of stroke or MS flare Discharge Goals Goal(s): Diagnostic testing, Therapeutic intervention Activity Recommendations Activity Limitations: resume your previous activity . Current Hospital Diet Patient's current hospital diet: AHA Diet (Heart Healthy) Discharge Diet Recommended Diet: AHA Diet (Heart Healthy) Pending Studies Studies pending at discharge: no Laboratory Results Hemoglobin A1c Test 12/18/17 15:20 Range/Units Lipid Panel Test 12/19/17 07:30 Range/Units Triglycerides Level 101 0-150 mg/dl Cholesterol Level 238 H 0-200 mg/dl HDL Cholesterol 52 mg/dl Cholesterol/HDL Ratio 4.6 LDL Cholesterol, Calculated 166 mg/dl Medical Emergencies . Who to Call and When: Medical Emergencies: If at any time you feel your situation is an emergency, please call 911 immediately. . Non-Emergent Contact Non-Emergency issues call your: Primary Care Provider . . "Provider Documentation" section prepared by Virgilio Wallis. . VTE Core Measure Inpt VTE Proph given/why not?: Treatment not indicated
--- NOTE | 2017-12-19 15:51 | Discharge Summary ---
Discharge Summary Date of Service Dec 19, 2017. Discharge Summary Admission Date: Dec 18, 2017 at 17:42 Discharge Date: Dec 19, 2017 Discharge Disposition: Home Principal Diagnosis: facial numbness (nonspecific etiology) Procedures: [~ rep ct add3]] MRI CERVICAL SPINE COMBO CLINICAL HISTORY: Neck pain, numbness, myelopathy. TECHNIQUE: Sagittal and axial T1, T2 and STIR images were obtained. Imaging was performed before and after administration of 8 cc of intravenous Gadavist COMPARISON STUDY: No previous studies for comparison. There are no suspicious areas of marrow replacement. No intrinsic cervical cord lesions are visualized. C2-3: There is no evidence of disc bulge or focal herniation. There is no spinal or foraminal stenosis. C3-4: There is no evidence of disc bulge or focal herniation. There is no spinal or foraminal stenosis. C4-5: There are no disc bulges or focal herniations. There is no spinal or foraminal stenosis. C5-6 :There is a circumferential disc bulge. There is no significant spinal or foraminal stenosis. C6-7: There is a circumferential disc bulge. There is no significant spinal or foraminal stenosis C7-T1: There is no evidence of disc bulge or focal herniation. There is no evidence of spinal or foraminal stenosis. There is artifact secondary to extensive posterior spinal fusion. There are no pathologically enhancing lesions. IMPRESSION: 1. Postsurgical changes with evidence of a cervical/occipital fusion extending to the C5 level 2. Mild degenerative change 3. No cord lesions identified. No evidence of significant spinal stenosis Electronically signed by: Sebastian Stafford M.D. 12/19/2017 11:47 AM MRI OF THE BRAIN WITHOUT AND WITH IV CONTRAST CLINICAL HISTORY: Stroke COMPARISON STUDY: Noncontrast head CT December 18, 2017 TECHNIQUE: MRI of the brain was performed from the vertex to the skull base utilizing various T1 and T2 weighted sequences. Following the IV administration of 8 mL of Gadavist contrast, additional enhanced images were obtained. FINDINGS: There is occipital artifact secondary to metallic plate seen within the occipital bone and upper cervical spine Sagittal T1, axial diffusion, proton density and T2 weighted axial, coronal FLAIR, and pre and post axial T1-weighted images were acquired. These were supplemented with post gadolinium coronal T1 weighted images. No intra or extra-axial mass lesions are visualized. Axial diffusion-weighted images reveal no evidence of acute or subacute infarction. There is no evidence of ventricular dilatation. Proton density T2-weighted and FLAIR images reveal scattered foci of increased T2 signal within the white matter, likely on a small vessel basis. There are no abnormal flow voids. There is no evidence of pathologic enhancement. There is a right parietal scalp nodule likely representing a sebaceous cyst IMPRESSION: 1. No evidence of acute or subacute infarction 2. No evidence of intracranial mass 3. Moderate foci of increased T2 signal within the white matter. This could be secondary to small vessel ischemic disease, or a demyelinating process Electronically signed by: Sebastian Stafford M.D. 12/18/2017 8:09 PM Dictated Date/Time: 12/18/2017 8:06 PM MR ANGIOGRAPHY OF THE [place] NO CONTRAST CLINICAL HISTORY: Stroke. Left-sided numbness. COMPARISON STUDY: None. A 3-D [id number] MR angiographic sequence of the [place] was performed. Both the source and projection images were reviewed. There is no evidence of major intracranial branch occlusion. There is no evidence of intracranial stenosis. There are no lesions suspicious for aneurysm. IMPRESSION: Unremarkable MR angiography of the [place]. Electronically signed by: Sebastian Stafford M.D. 12/18/2017 7:20 PM Dictated Date/Time: 12/18/2017 7:18 PM NECK MRA HISTORY: Left-sided numbness suspected stroke TECHNIQUE: [id number]-fo-rztebu and gadolinium-enhanced MRA of the neck was performed both before and after the intravenous administration of contrast. All measurements were calculated based on NASCET criteria. The patient was administered 8 cc of intravenous Gadavist COMPARISON STUDY: None. FINDINGS: The aortic arch and proximal great vessels are widely patent. There is no significant stenosis, occlusion, or dissection identified within the bilateral common carotid, internal carotid, or vertebral arteries. IMPRESSION: No significant stenosis, occlusion, or dissection identified within the carotid or vertebral arteries. Electronically signed by: Sebastian Stafford M.D. 12/18/2017 8:12 PM Dictated Date/Time: 12/18/2017 8:10 PM CHEST ONE VIEW PORTABLE CLINICAL HISTORY: Weakness COMPARISON STUDY: No previous studies for comparison. FINDINGS: The cardiac and mediastinal contours are normal. There is no evidence of focal pulmonary consolidation. There is no evidence of failure. No pleural effusions are visualized.[ There are bilateral shoulder arthroplasties. There is significant lucency surrounding the humeral component of the left shoulder arthroplasty. IMPRESSION: No active disease in the chest. Electronically signed by: Sebastian Stafford M.D. 12/18/2017 2:49 PM Dictated Date/Time: 12/18/2017 2:48 PM Last Resulted CBC 12/19/17 07:30 Red Blood Count 4.19, Mean Corpuscular Volume 90.0, Mean Corpuscular Hemoglobin 30.5, Mean Corpuscular Hemoglobin Concent 34.0, Mean Platelet Volume 8.9, Neutrophils (%) (Auto) 62.9, Lymphocytes (%) (Auto) 23.1, Monocytes (%) (Auto) 8.3, Eosinophils (%) (Auto) 4.9, Basophils (%) (Auto) 0.7, Neutrophils # (Auto) 4.50, Lymphocytes # (Auto) 1.65, Monocytes # (Auto) 0.59, Eosinophils # (Auto) 0.35, Basophils # (Auto) 0.05 Last Resulted BMP 12/19/17 07:30 Consultations: neurology: a/p: Imaging I reviewed the images and radiologist's interpretation of the recently completed brain MRI. The study reveals a moderate number of foci of increased T2 signal throughout the cerebral white matter. These changes are consistent with either chronic small vessel ischemic disease or demyelinating disease. No evidence of abnormal post contrast enhancement. No areas of restricted diffusion. No acute process. An MRA of the head and neck has also been completed. No significant abnormalities observed. No evidence of aneurysm, vasculitis, or vascular occlusion. Impression This is a 67-year-old female who complains of persistent left facial numbness for the past week occurring in the context of chronic neck and left shoulder pain with a history of multilevel cervical fusion, considerably reduced cervical mobility, and severe left shoulder arthropathy for which she has been wearing a left upper extremity sling which wraps around the right side of her neck. I do not find any evidence of numbness on her face despite her stated complaint. However, I suspect her reported sensory symptoms are cervicogenic in origin. There is no evidence of acute or subacute stroke or active demyelination on the recently completed brain MRI. Plan X-rays of the cervical spine MRI of the cervical spine with and without contrast If the above studies are negative for an acute process I would not have any further immediate recommendations. Continuing with her duloxetine, cyclobenzaprine, and meloxicam is appropriate. She will need to follow-up with her orthopedist on Wednesday as planned. I would not recommend treatment for her stated history of multiple sclerosis at this time. As there is no evidence of an acute MS exacerbation, I would not recommend corticosteroid therapy at this time. Please contact me if I may be of further assistance. <Electronically signed by Adam Ji MD> Medication Reconciliation Continued Medications: Calcium Carbonate (Os-Ramon 500) 1,250 Mg Tab 500 MG PO DAILY, TAB Cholecalciferol (Vitamin D3) 1,000 Unit Tab Unknown Dose PO DAILY for 90 Days, TAB 3 Refills Cyclobenzaprine Hcl (Flexeril) 10 Mg Tab 1 TAB PO HS for 30 Days, #30 TAB Cyclosporine (Ophth) (Restasis) 0.05 % Emu 1 DROP OPB BID, BTL Doxazosin Mesylate (Cardura) 4 Mg Tab 4 MG PO DAILY, TAB Duloxetine Hcl (Cymbalta) 60 Mg Cap 60 MG PO DAILY, CAP Ferrous Sulfate (Iron) 325 Mg Tab 1 TAB PO DAILY Levothyroxine Sodium (Synthroid) 75 Mcg Tab 75 MCG PO DAILY, TAB Losartan Potassium (Cozaar) 100 Mg Tab 100 MG PO DAILY, TAB Meloxicam (Mobic) 15 Mg Tab 15 MG PO DAILY, TAB Omeprazole (Prilosec) 20 Mg Capcr 20 MG PO DAILY, CAP Discharge Exam Physical Exam: General Appearance: no apparent distress Eyes: EOMI ENT: hearing grossly normal Neck: trachea midline Respiratory/Chest: no respiratory distress, no accessory muscle use Extremities: normal inspection Neurologic/Psychiatric: chair caner II-XII nml as tested, alert Skin: normal color, warm/dry Hospital Course came to ER w facial numbness - fortunately no evidence of stroke/MS flare/etc - exact etiology not clear, see neurology consult above. discussed further w/u vs knowing that worrisome and acute etiologies have been ruled out and that outpt f/u is safe - she strongly opted for the latter discharged home stable. Total Time Spent: Less than 30 minutes This includes examination of the patient, discharge planning, medication reconciliation, and communication with other providers. Discharge Instructions Please refer to the electronic Patient Visit Report (Discharge Instructions) for additional information.
[2017-12-20 07:04] LABS: HEMOGLOBIN A1C 5.2 % (4.5-5.6)
== END 2017-12-19 16:54 | disposition home or self-care (01) ==
LOC: C.EDB 13:48 → C.2T 17:42 → ENRESERV 18:20
PROVIDERS: ADMIT Family Medicine; ATTEND Family Medicine
DX: R20.0 Anesthesia of skin (principal); G35 Multiple sclerosis; M06.9 Rheumatoid arthritis, unspecified; E03.9 Hypothyroidism, unspecified; E61.1 Iron deficiency; K21.9 Gastro-esophageal reflux disease without esophagitis; Z83.3 Family history of diabetes mellitus; Z82.49 Family history of ischemic heart disease and other diseases of the circulatory system; Z87.891 Personal history of nicotine dependence; Z79.899 Other long term (current) drug therapy; Z88.0 Allergy status to penicillin; Z81.1 Family history of alcohol abuse and dependence; Z88.5 Allergy status to narcotic agent; Z91.040 Latex allergy status

== ENCOUNTER 2022-10-12 08:00 | Observation (INO) ==
[2022-10-12] MEDS ORDERED: SODIUM CHLORIDE 0.9% 500 ML IV STA (08:36)
[2022-10-12] MEDS ORDERED: NITROGLYCERIN SL 0.4 MG/TAB TAB ONE (08:36)
[2022-10-12] MEDS ORDERED: NITROGLYCERIN SL 0.4 MG/TAB TAB SL PRN (08:36)
[2022-10-12 09:00] LABS: Basophils # (auto) 0.06 K/uL (0-0.2); Basophils % (auto) 1.1 %; Eosinophils # (auto) 0.11 K/uL (0-0.50); Hematocrit (blood only) 39.3 % (34.1-44.9); Immature Granulocytes # (auto) 0.01 K/uL (0.00-0.02); Immature Granulocytes % (auto) 0.2 %; Lymphocytes # (auto) 1.55 K/uL (1.2-3.4); Lymphocytes % (auto) 28.3 %; Mean Corpuscular Hemoglobin 32.5 pg (25.0-34.0); Mean Corpuscular Hgb Conc 33.1 g/dL (32.0-36.0); Mean Corpuscular Volume 98.3 fL (80.0-100.0); Monocytes # (auto) 0.49 K/uL (0.24-0.82); Neutrophils # (auto) 3.25 K/uL (1.4-6.5); Neutrophils % (auto) 59.4 %; Platelet Count 342 K/uL (130-400); RDW Coefficient of Variation 13.2 % (11.5-14.5); RDW Standard Deviation 46.9 fL (36.4-46.3); White Blood Count 5.47 K/ul (4.8-10.8)
[2022-10-12 09:12] LABS: INR 0.9 (0.9-1.1); Prothrombin Time 10.1 Seconds (9.0-12.0)
--- NOTE | 2022-10-12 09:13 | Emergency Department Note ---
Impression & Plan Acute non-ST elevation myocardial infarction (NSTEMI), Chest pain, Elevated troponin I level, Lymphadenopathy ED Provider Note NAME: TAMIE NATH AGE: 71 SEX: F : 1950 ARRIVES VIA: Ambulance INFORMANT: [Patient][, ] ED PROVIDER(S): [Preston Morales MD] Chief Complaint: Chest pain HPI: Patient presents due to concern for chest pain that began upon waking this morning around 6 AM. The patient states that she felt diaphoretic. The patient does complain of a heaviness located over the upper chest. Patient states it does moved to her back. Patient was noted to be hypoxemic at 89% when EMS arrived. Patient did take a full dose aspirin this morning. Patient did have an associated nitro in route with only mild improvement. Patient is a former smoker no active smoking history cough or fever. No known sick contacts or recent travel. Patient denies any calf pain or leg swelling. No recent hospitalizations. ROS: See HPI for pertinent positives and negatives. A total of 10 systems were reviewed and otherwise negative. Past medical history: See below Surgical history: See below Social history: See below Physical Exam: GENERAL: NAD, [wearing a mask,] non-toxic. Nasal cannula place, wearing glasses. EYE EXAM: Normal conjunctiva. PERRL, no anisocoria and EOM's grossly intact w/o pain. NECK: Supple, no nuchal rigidity, no adenopathy, non-tender. No signs of meningismus. FROM of the neck with good chin to chest and neck extension. No stridor. LUNGS: Clear to auscultation. Normal chest wall mechanics. HEART: NSR, no MRG. ABDOMEN: Abdomen soft, non-tender, normo-active bowel sounds, no masses, no rebound or guarding. BACK: No CVA TTP. SKIN: No rashes and no bruising. UPPER EXTREMITIES: Upper extremities are grossly normal. LOWER EXTREMITIES: Grossly normal, no edema. NEURO EXAM: A&O x3, cranial nerves II-XII grossly intact, normal speech, moves all 4 extremities. Differential diagnoses: Cardiac ischemia, aortic dissection, pulmonary embolism, pneumothorax, pneumonia, pericarditis, myocarditis, esophageal rupture, GERD, cholecystitis, pancreatitis, musculoskeletal, as well as other pathologies. Course: Patient was seen and evaluated the bedside. Full history physical exam was performed. EKG interpreted by me Sinus, rate of 95, normal intervals normal axis no ST elevations. PVC noted Imaging Studies: See Below Cardiac monitoring: An order was placed for continuous cardiac monitoring. The monitor shows a rate of 78 with sinus rhythm. MDM: Patient presented due to concern for chest pain. Blood work is obtained along with an EKG troponin chest x-ray CT angiography of the chest. Patient was on 2 L nasal cannula. The patient was ordered nitro. Patient's initial EKG does not show any obvious ST elevations. The patient's blood work shows normal white count H&H and platelet count. Kidney function is unremarkable. Mild hypokalemia 3.4. Patient's initial troponin at 112. Heparin initially held as the patient was noted to be hypoxic and the patient had complained of chest pain with radiation to the back. Wanted to ensure ruling out a dissection prior to starting heparin. There was a delay in obtaining a CT angiogram as the patient's IV infiltrated did require a new IV start. Upon obtaining the new IV I did order repeat troponin. I did speak with on-call dial refinisher Dr. Conley given the patient's ongoing chest pain. He stated that if the patient's chest pain did not resolve that he will evaluate the patient at the bedside CT angiography does not show any evidence of PE. The patient does have mild left axillary lymphadenopathy. No pneumonia. The patient does have nodules which the patient already knew about before. Mild emphysema noted. Heparin ordered. I did go over the findings with the patient the patient's daughter at bedside. The patient had been ordered some morphine but reportedly her chest pain had resolved prior to receiving the morphine. I did convey this to Dr. Conley who did not request any additional in terventions at this time. The patient's repeat troponin was pending at the time of admission. I did speak with the on-call hospitalist Kylie Fraser PA-C the patient was admitted to the hospitalist service by Dr. Peters. Of note I did see that the patient's second troponin was elevated and cardiology had already been consulted by the primary medicine service. Critical Care: I have personally spent 45 minutes of critical care time in direct management of this patient. This includes bedside care, interpretation of diagnostic studies, and testing, discussion with consultants, patient, and family members, and other require inpatient management activities. This 45 minutes is in excess of all separately billable procedures. Past Med/Surg History Medical History (Updated 10/12/22 @ 13:57 by Preston Morales MD) Chest pain Multiple sclerosis Rheumatoid arthritis Surgical History History of cervical spinal surgery History of cholecystectomy Social History Smoking Status: Former smoker Hx Substance Use: No Preferred Language: Frisian Feels Safe at Home: Yes Allergies Allergies Allergy/AdvReac Type Severity Reaction Status Date / Time vancomycin Allergy Severe HIVES Verified 12/18/17 16:19 Penicillins Allergy Mild . Verified 04/02/14 14:49 hydroxychloroquine Allergy Unknown HIVES Verified 12/18/17 16:19 latex Allergy Unknown HIVES Verified 12/18/17 16:19 Home Meds Home Medications Medication Instructions Recorded Confirmed CALCIUM CARBONATE (OS-ALEX 500) 500 mg PO DAILY #0 tabs 12/18/17 CHOLECALCIFEROL (VITAMIN D3) PO DAILY 90 days #0 tabs 12/18/17 CYCLOBENZAPRINE HCL (FLEXERIL) 1 tab PO HS 30 days #30 tabs 12/18/17 CYCLOSPORINE (OPHTH) (RESTASIS) 1 drp OPB BID #0 BTLS 12/18/17 DOXAZOSIN MESYLATE (CARDURA) 4 mg PO DAILY #0 tabs 12/18/17 DULOXETINE HCL (CYMBALTA) 60 mg PO DAILY #0 caps 12/18/17 FERROUS SULFATE (IRON) 1 tab PO DAILY ##0 12/18/17 LEVOTHYROXINE SODIUM (SYNTHROID) 75 mcg PO DAILY #0 tabs 12/18/17 LOSARTAN POTASSIUM (COZAAR) 100 mg PO DAILY #0 tabs 12/18/17 MELOXICAM (MOBIC) 15 mg PO DAILY #0 tabs 12/18/17 OMEPRAZOLE (PRILOSEC) 20 mg PO DAILY #0 caps 12/18/17 Results & Data (ED) Vital Signs Vital Signs - 24 hr 10/12/22 08:19 10/12/22 08:19 10/12/22 08:19 Temperature 36.4 C L Temperature Source Oral Pulse Rate 89 83 Pulse Rate [Apical] Pulse Rate from SpO2 Sensor Pulse Rhythm Regular Regular Pulse Rhythm [Apical] Pulse Strength Normal Pulse Strength [Apical] Respiratory Rate 20 20 Respiratory Effort / Characteristics Non-Labored Spontaneous Respiratory Depth Normal Respiratory Pattern Regular Blood Pressure 154/81 H Blood Pressure [Right Arm] Blood Pressure Mean 105 Blood Pressure Mean [Right Arm] Blood Pressure Position Semi-fowlers Blood Pressure Position [Right Arm] Pulse Oximetry 89 L 89 L 95 Oxygen Delivery Method Room Air Room Air Nasal Cannula Oxygen Flow Rate 0 2 Sepsis Recent Fever Within 48 Hours No Sepsis New/Unexplained Change in Mental Status No Sepsis Action Taken by Nursing No Action Required Oxygen Flow Rate - Titration 2 Pulse Oximetry Post Tiitration 95 10/12/22 09:01 10/12/22 09:36 10/12/22 11:12 Temperature Temperature Source Pulse Rate 99 H Pulse Rate [Apical] 77 78 Pulse Rate from SpO2 Sensor 99 H Pulse Rhythm Pulse Rhythm [Apical] Regular Regular Pulse Strength Pulse Strength [Apical] Normal Normal Respiratory Rate 18 20 17 Respiratory Effort / Characteristics Non-Labored Spontaneous Non-Labored Spontaneous Respiratory Depth Normal Normal Respiratory Pattern Regular Regular Blood Pressure 194/80 H Blood Pressure [Right Arm] 151/73 H 157/84 H Blood Pressure Mean 118 Blood Pressure Mean [Right Arm] 99 108 Blood Pressure Position Blood Pressure Position [Right Arm] Semi-fowlers Semi-fowlers Pulse Oximetry 94 96 90 Oxygen Delivery Method Room Air Nasal Cannula Oxygen Flow Rate 2 2 Sepsis Recent Fever Within 48 Hours Sepsis New/Unexplained Change in Mental Status Sepsis Action Taken by Nursing Oxygen Flow Rate - Titration Pulse Oximetry Post Tiitration 10/12/22 11:21 10/12/22 11:30 10/12/22 12:30 Temperature Temperature Source Pulse Rate 82 80 84 Pulse Rate [Apical] Pulse Rate from SpO2 Sensor 82 80 83 Pulse Rhythm Pulse Rhythm [Apical] Pulse Strength Pulse Strength [Apical] Respiratory Rate 22 23 20 Respiratory Effort / Characteristics Respiratory Depth Respiratory Pattern Blood Pressure 150/68 H 154/79 H 156/77 H Blood Pressure [Right Arm] Blood Pressure Mean 95 104 103 Blood Pressure Mean [Right Arm] Blood Pressure Position Blood Pressure Position [Right Arm] Pulse Oximetry 97 97 96 Oxygen Delivery Method Oxygen Flow Rate Sepsis Recent Fever Within 48 Hours Sepsis New/Unexplained Change in Mental Status Sepsis Action Taken by Nursing Oxygen Flow Rate - Titration Pulse Oximetry Post Tiitration 10/12/22 13:13 Temperature Temperature Source Pulse Rate 84 Pulse Rate [Apical] Pulse Rate from SpO2 Sensor Pulse Rhythm Pulse Rhythm [Apical] Pulse Strength Pulse Strength [Apical] Respiratory Rate 20 Respiratory Effort / Characteristics Respiratory Depth Respiratory Pattern Blood Pressure 156/77 H Blood Pressure [Right Arm] Blood Pressure Mean Blood Pressure Mean [Right Arm] Blood Pressure Position Blood Pressure Position [Right Arm] Pulse Oximetry 96 Oxygen Delivery Method Room Air Oxygen Flow Rate Sepsis Recent Fever Within 48 Hours Sepsis New/Unexplained Change in Mental Status Sepsis Action Taken by Nursing Oxygen Flow Rate - Titration Pulse Oximetry Post Tiitration Home Medications Current Medication List: was personally reviewed by me Laboratory Data Attestation: I reviewed the patient's lab results. Result diagrams: 10/12/22 08:12 10/12/22 08:12 Lab Results 10/12/22 10/12/22 10/12/22 Range/Units 08:12 08:12 08:12 WBC 5.47 (4.8-10.8) K/ul RBC 4.00 (3.93-5.22) M/uL Hgb 13.0 (12.0-16.0) g/dl Hct 39.3 (34.1-44.9) % MCV 98.3 (80.0-100.0) fL MCH 32.5 (25.0-34.0) pg MCHC 33.1 (32.0-36.0) g/dL RDW Std Deviation 46.9 H (36.4-46.3) fL RDW Coeff of Juaquin 13.2 (11.5-14.5) % Plt Count 342 (130-400) K/uL MPV 10.0 (9.4-12.3) fL Immature Gran % (Auto) 0.2 % Neut % (Auto) 59.4 % Lymph % (Auto) 28.3 % Hoke % (Auto) 9.0 % Eos % (Auto) 2.0 % Baso % (Auto) 1.1 % Neut # (Auto) 3.25 (1.4-6.5) K/uL Lymph # (Auto) 1.55 (1.2-3.4) K/uL Hoke # (Auto) 0.49 (0.24-0.82) K/uL Eos # (Auto) 0.11 (0-0.50) K/uL Baso # (Auto) 0.06 (0-0.2) K/uL Immature Gran # (Auto) 0.01 (0.00-0.02) K/uL PT 10.1 (9.0-12.0) Seconds INR 0.9 (0.9-1.1) APTT 28.0 (21.0-31.0) Seconds PTT Ratio 1.0 Sodium 139 (136-145) mmol/L Potassium 3.4 L (3.5-5.1) mmol/L Chloride 103 (98-107) mmol/L Carbon Dioxide 29 (21-32) mmol/L Anion Gap 7 (3-11) BUN 14 (6-23) mg/dl Creatinine 0.80 (0.6-1.2) mg/dl Est Cr Clr Drug Dosing 60.1 ml/min Est GFR ( Amer) 85.4 ml/min Est GFR (Non-Af Amer) 73.7 ml/min BUN/Creatinine Ratio 17.5 (10-20) Glucose 101 H (70-99(Fasting)) mg/dl Calcium 9.5 (8.5-10.1) mg/dl Total Bilirubin 0.6 (0.2-1.0) mg/dl AST 35 (13-39) U/L ALT 33 (7-52) U/L Alkaline Phosphatase 78 (34-104) U/L Troponin I High Sens 112.1 H* (0-14) pg/ml Total Protein 8.1 (6.0-8.3) gm/dl Albumin 4.7 (3.4-5.0) gm/dl Globulin 3.4 (2.5-4.0) gm/dl Albumin/Globulin Ratio 1.4 (0.9-2) Lipase 23 (11-82) U/L SARS-CoV-2 (PCR) (Negative) Influenza Type A (PCR) (Neg) Influenza Type B (PCR) (Neg) RSV (RT-PCR) (Neg) 10/12/22 10/12/22 Range/Units 08:44 10:50 WBC (4.8-10.8) K/ul RBC (3.93-5.22) M/uL Hgb (12.0-16.0) g/dl Hct (34.1-44.9) % MCV (80.0-100.0) fL MCH (25.0-34.0) pg MCHC (32.0-36.0) g/dL RDW Std Deviation (36.4-46.3) fL RDW Coeff of Juaquin (11.5-14.5) % Plt Count (130-400) K/uL MPV (9.4-12.3) fL Immature Gran % (Auto) % Neut % (Auto) % Lymph % (Auto) % Hoke % (Auto) % Eos % (Auto) % Baso % (Auto) % Neut # (Auto) (1.4-6.5) K/uL Lymph # (Auto) (1.2-3.4) K/uL Hoke # (Auto) (0.24-0.82) K/uL Eos # (Auto) (0-0.50) K/uL Baso # (Auto) (0-0.2) K/uL Immature Gran # (Auto) (0.00-0.02) K/uL PT (9.0-12.0) Seconds INR (0.9-1.1) APTT (21.0-31.0) Seconds PTT Ratio Sodium (136-145) mmol/L Potassium (3.5-5.1) mmol/L Chloride (98-107) mmol/L Carbon Dioxide (21-32) mmol/L Anion Gap (3-11) BUN (6-23) mg/dl Creatinine (0.6-1.2) mg/dl Est Cr Clr Drug Dosing ml/min Est GFR ( Amer) ml/min Est GFR (Non-Af Amer) ml/min BUN/Creatinine Ratio (10-20) Glucose (70-99(Fasting)) mg/dl Calcium (8.5-10.1) mg/dl Total Bilirubin (0.2-1.0) mg/dl AST (13-39) U/L ALT (7-52) U/L Alkaline Phosphatase (34-104) U/L Troponin I High Sens 1815.4 H* D (0-14) pg/ml Total Protein (6.0-8.3) gm/dl Albumin (3.4-5.0) gm/dl Globulin (2.5-4.0) gm/dl Albumin/Globulin Ratio (0.9-2) Lipase (11-82) U/L SARS-CoV-2 (PCR) NEGATIVE (Negative) Influenza Type A (PCR) Negative (Neg) Influenza Type B (PCR) Negative (Neg) RSV (RT-PCR) Negative (Neg) Administered Medications Heparin Sodium/Dextrose (Heparin Sodium/Dextrose) 25,000 units in 500 mls @ 15 mls/hr IV .Q24H AYUSH; Protocol Stop: 11/11/22 11:44 Last Admin: 10/12/22 11:55 Dose: 750 units/hr, 15 mls/hr Documented By: LEROY Co-signed By: VENUS Nitroglycerin (Nitroglycerin Sl 0.4 Mg/Tab Tab) 0.4 mg SL UD PRN PRN Reason: Chest Pain Stop: 11/11/22 08:35 Last Admin: 10/12/22 08:39 Dose: 0.4 mg Documented By: ODIN Discontinued Medications Heparin Sodium/Dextrose (Heparin Iv Adult Wt-Based Low-Dose *No* Bolus Protocol) 1 each IV ONE ONE; Protocol Stop: 10/12/22 11:29 Last Admin: 10/12/22 11:56 Dose: Not Given Documented By: LEROY Sodium Chloride (Nss) 500 mls @ 500 mls/hr IV .Q1H STA Stop: 10/12/22 09:35 Last Infusion: 10/12/22 09:33 Dose: 0 mls/hr Documented By: Admin: 10/12/22 08:40 Dose: 500 mls/hr Documented By: ODIN Ioversol (Optiray 320 500ml) 106 ml IV ONCE ONE Stop: 10/12/22 11:16 Last Admin: 10/12/22 11:05 Dose: 106 ml Documented By: TIFFANY Morphine Sulfate (Morphine Sulfate 2 Mg/Ml Carp) 2 mg IV NOW STA Stop: 10/12/22 10:12 Last Admin: 10/12/22 10:53 Dose: 2 mg Documented By: LEROY Nitroglycerin (Nitroglycerin Sl 0.4 Mg/Tab Tab) Confirm Administered Dose 0.4 mg .ROUTE .STK-MED ONE Stop: 10/12/22 08:37 Last Admin: 10/12/22 08:39 Dose: Not Given Documented By: ODIN Imaging Data Radiologist's Impression: Chest X-Ray 10/12/22 08:18 XR chest 1V portable HISTORY: Nausea. Atypical Chest pain, nonspecific COMPARISON: Chest 12/18/2017. FINDINGS: No pneumothorax. No pleural effusions. No focal lung consolidations to suggest pneumonia. No evidence for pulmonary edema. The heart is normal in size. There are bilateral total shoulder arthroplasties. IMPRESSION: No acute process. ACT 112: Negative or not required by law. Electronically signed by: Erick Rojo M.D. 10/12/2022 9:22 AM Chest CTA 10/12/22 08:36 CHEST CTA for PULMONARY ARTERIES CT DOSE: 836.46 mGy.cm HISTORY: Atypical chest pain. Hypoxia. TECHNIQUE: Multiaxial CT images of the chest were performed following the intravenous administration of contrast to evaluate the pulmonary arteries. Maximal intensity projection images were also obtained. A dose lowering technique was utilized adhering to the principles of ALARA. COMPARISON STUDY: None. FINDINGS: The visualized liver, spleen, and adrenal glands are unremarkable. Mild to moderate degenerative disc disease within the thoracic spine. Normal caliber esophagus. Small hiatus hernia. No pleural or pericardial effusions. No mediastinal or hilar lymphadenopathy. The heart is normal in size. There is mild left axillary lymphadenopathy. Dominant axillary lymph nodes measure up to 1.7 x 1.2 cm. Normal caliber thoracic aorta with no evidence for a dissection. Moderate coronary artery calcifications are noted. The majority of the subsegmental pulmonary arteries are nondiagnostic due to the respiratory motion artifact and suboptimal timing of contrast. However, the remaining pulmonary arteries show no filling defects to suggest a pulmonary embolus. No pneumothorax. Mild central bronchial wall thickening is noted. Mild emphysema. A 5 mm groundglass nodule within the left upper lobe on image 211. A 4 mm subpleural nodule within the left upper lobe abutting the major fissure on image 223. A 2 mm left apical pulmonary nodule on image 259. A few small bibasilar linear densities likely representing scarring or subsegmental atelectasis. Otherwise, no focal lung consolidations to suggest a pneumonia. No evidence for pulmonary edema. Old, healed right-sided rib fractures. IMPRESSION: 1. No evidence for a pulmonary embolus. 2. Mild left axillary lymphadenopathy. [address] follow-up recommended to ensure resolution of this abnormality. 3. No focal lung consolidations to suggest a pneumonia. 4. Mild emphysema. 5. A few subcentimeter pulmonary nodules within the left upper lobe measure up to 5 mm. Please refer to the chart below. Please refer to below summary of Fleischner criteria recommendations for follow- up of incidental CT nodules (Santiago Huff, Guidelines for management of small pulmonary nodules detected on CT scans: A statement from the Fleischner Society, Radiology 237: [phone].) SOLID NODULES Solitary nodule size: <6 mm * Low risk patients: no follow-up needed * high risk patients: optional CT at 12 months Solitary nodule size: 6-8 mm * Low risk patients: follow-up at 6-12 months, then consider further follow-up at 18-24 months * high risk patients: initial follow-up CT at 6-12 months and then at 18-24 months if no change Solitary nodule size: >8 mm * either low or high risk patients - consider follow-up CT at 3 months, and/or CT-PET, and/or biopsy Multiple nodules size: <6 mm * Low risk patients: no routine follow-up * high risk patients: optional CT at 12 months Multiple nodules size: 6-8 mm * Low risk patients: follow-up at 3-6 months, then consider further follow-up at 18-24 months * high risk patients: follow-up at 3-6 months, then at 18-24 months if no change Multiple nodules size: >8 mm * Low risk patients: follow-up at 3-6 months, then consider further follow-up at 18-24 months * high risk patients: follow-up at 3-6 months, then at 18-24 months if no change Note: newly detected indeterminate nodule in persons 35 years of age or older. * Low risk patients: minimal or absent history of smoking and/or other known risk factors * high risk patients: history of smoking or of other known risk factors (e.g. first degree relative with lung cancer, or exposure to asbestos, radon, uranium) * if a nodule up to 8 mm is partly solid or is ground glass further follow-up is required after 24 months to exclude possible slow growing adenocarcinoma (MATTHEW) SUBSOLID NODULES Solitary pure ground-glass nodule * nodule size <6 mm - no CT follow-up required * nodule size >=6 mm - follow-up CT at 6-12 months, then every 2 years until 5 years Solitary part-solid nodule * nodule size <6 mm - no CT follow-up required * nodule size >=6 mm - follow-up CT at 3-6 months. If unchanged, and solid component remains <6 mm, then annual follow-up for 5 years Multiple subsolid nodules * nodule size <6 mm - follow-up CT at 3-6 months, consider further follow-up at 2 and 4 years if stable * nodule size >=6 mm - follow-up CT at 3-6 months, subsequent management based on the most suspicious nodule(s) ACT 112: Positive. There are findings on this exam that require communication between the performing entity and the patient following Patient Test Result Information Act ([place] Act 112) guidelines. Electronically signed by: Erick Rojo M.D. 10/12/2022 11:23 AM Discharge Plan Visit Data Chief Complaint: Chest Pain Stated Complaint: CHEST PAIN ED Provider: Preston Morales Discharge Problem: Acute non-ST elevation myocardial infarction (NSTEMI), Chest pain, Elevated troponin I level, Lymphadenopathy Discharge Instructions Interventions: ED Discharge Assessment Last Done: 10/12/22 13:13
--- NOTE | 2022-10-12 09:23 | XRay Report ---
XR chest 1V portable HISTORY: Nausea. Atypical Chest pain, nonspecific COMPARISON: Chest 12/18/2017. FINDINGS: No pneumothorax. No pleural effusions. No focal lung consolidations to suggest pneumonia. N o evidence for pulmonary edema. The heart is normal in size. There are bilateral total shoulder arthr oplasties. IMPRESSION: No acute process. ACT 112: Negative or not required by law. Electronically signed by: Erick Rojo M.D. 10/12/2022 9:22 AM
[2022-10-12 09:39] LABS: Influenza A virus by PCR Negative (Neg); Influenza B virus by PCR Negative (Neg); RSV by PCR Negative (Neg); SARS CoV2 RNA(COVID-19) Ceph NEGATIVE (Negative)
[2022-10-12 09:41] LABS: Troponin I High Sensitivity 112.1 pg/ml (0-14)
[2022-10-12 09:47] LABS: Albumin Globulin Ratio 1.4 (0.9-2); Albumin Level 4.7 gm/dl (3.4-5.0); BUN Creatinine Ratio 17.5 (10-20); Bilirubin,Total 0.6 mg/dl (0.2-1.0); Calcium 9.5 mg/dl (8.5-10.1); Creatinine Clr Calc Pharmacy 60.1 ml/min; Est GFR (African American) 85.4 ml/min; Est GFR (Non-African American) 73.7 ml/min; Globulin 3.4 gm/dl (2.5-4.0); Potassium 3.4 mmol/L (3.5-5.1); Total Protein 8.1 gm/dl (6.0-8.3)
[2022-10-12] MEDS ORDERED: MoRPHine SULFATE 2 MG/ML CARP IV STA (10:11)
[2022-10-12] MEDS ORDERED: OPTIRAY 320 500ml IV ONE (11:15)
--- NOTE | 2022-10-12 11:26 | CT Scan Report ---
CHEST CTA for PULMONARY ARTERIES CT DOSE: 836.46 mGy.cm HISTORY: Atypical chest pain. Hypoxia. TECHNIQUE: Multiaxial CT images of the chest were performed following the intravenous administration of contrast to evaluate the pulmonary arteries. Maximal intensity projection images were also obtaine d. A dose lowering technique was utilized adhering to the principles of ALARA. COMPARISON STUDY: None. FINDINGS: The visualized liver, spleen, and adrenal glands are unremarkable. Mild to moderate degener ative disc disease within the thoracic spine. Normal caliber esophagus. Small hiatus hernia. No pleur al or pericardial effusions. No mediastinal or hilar lymphadenopathy. The heart is normal in size. Th ere is mild left axillary lymphadenopathy. Dominant axillary lymph nodes measure up to 1.7 x 1.2 cm. Normal caliber thoracic aorta with no evidence for a dissection. Moderate coronary artery calcificati ons are noted. The majority of the subsegmental pulmonary arteries are nondiagnostic due to the respi ratory motion artifact and suboptimal timing of contrast. However, the remaining pulmonary arteries s how no filling defects to suggest a pulmonary embolus. No pneumothorax. Mild central bronchial wall t hickening is noted. Mild emphysema. A 5 mm groundglass nodule within the left upper lobe on image 211 . A 4 mm subpleural nodule within the left upper lobe abutting the major fissure on image 223. A 2 mm left apical pulmonary nodule on image 259. A few small bibasilar linear densities likely representin g scarring or subsegmental atelectasis. Otherwise, no focal lung consolidations to suggest a pneumoni a. No evidence for pulmonary edema. Old, healed right-sided rib fractures. IMPRESSION: 1. No evidence for a pulmonary embolus. 2. Mild left axillary lymphadenopathy. [address] follow-up recommended to ensure resolution of this abnormality. 3. No focal lung consolidations to suggest a pneumonia. 4. Mild emphysema. 5. A few subcentimeter pulmonary nodules within the left upper lobe measure up to 5 mm. Please refer to the chart below. Please refer to below summary of Fleischner criteria recommendations for follow-up of incidental CT n odules (Santiago Huff, Guidelines for management of small pulmonary nodules detected on CT scans: A sta tement from the Fleischner Society, Radiology 237: [phone].) SOLID NODULES Solitary nodule size: <6 mm * Low risk patients: no follow-up needed * high risk patients: optional CT at 12 months Solitary nodule size: 6-8 mm * Low risk patients: follow-up at 6-12 months, then consider further follow-up at 18-24 months * high risk patients: initial follow-up CT at 6-12 months and then at 18-24 months if no change Solitary nodule size: >8 mm * either low or high risk patients - consider follow-up CT at 3 months, and/or CT-PET, and/or biopsy Multiple nodules size: <6 mm * Low risk patients: no routine follow-up * high risk patients: optional CT at 12 months Multiple nodules size: 6-8 mm * Low risk patients: follow-up at 3-6 months, then consider further follow-up at 18-24 months * high risk patients: follow-up at 3-6 months, then at 18-24 months if no change Multiple nodules size: >8 mm * Low risk patients: follow-up at 3-6 months, then consider further follow-up at 18-24 months * high risk patients: follow-up at 3-6 months, then at 18-24 months if no change Note: newly detected indeterminate nodule in persons 35 years of age or older. * Low risk patients: minimal or absent history of smoking and/or other known risk factors * high risk patients: history of smoking or of other known risk factors (e.g. first degree relative with lung cancer, or exposure to asbestos, radon, uranium) * if a nodule up to 8 mm is partly solid or is ground glass further follow-up is required after 24 m onths to exclude possible slow growing adenocarcinoma (MATTHEW) SUBSOLID NODULES Solitary pure ground-glass nodule * nodule size <6 mm - no CT follow-up required * nodule size >=6 mm - follow-up CT at 6-12 months, then every 2 years until 5 years Solitary part-solid nodule * nodule size <6 mm - no CT follow-up required * nodule size >=6 mm - follow-up CT at 3-6 months. If unchanged, and solid component remains <6 mm, then annual follow-up for 5 years Multiple subsolid nodules * nodule size <6 mm - follow-up CT at 3-6 months, consider further follow-up at 2 and 4 years if sta ble * nodule size >=6 mm - follow-up CT at 3-6 months, subsequent management based on the most suspiciou s nodule(s) ACT 112: Positive. There are findings on this exam that require communication between the performing entity and the patient following Patient Test Result Information Act ([place] Act 112) guidelines. Electronically signed by: Erick Rojo M.D. 10/12/2022 11:23 AM
[2022-10-12] MEDS ORDERED: Heparin IV Adult Wt-Based Low-Dose *NO* Bolus Protocol IV ONE (11:28)
--- NOTE | 2022-10-12 11:40 | History & Physical Report ---
Date of Service October 12, 2022 Assessment & Plan (1) Acute non-ST elevation myocardial infarction (NSTEMI): Plan: - Onset of central chest pain with radiation to back 6AM this morning with associated diaphoresis. - Initial trop 112, EKG with some nonspecific T wave abnormalities, chest pain alleviated 1 hour after 2nd nitro dose/before morphine. - 2 hour troponin 1815. - Echo: EF 60-65%, severe hypokinesis on base of mid inferoseptum, no LVH, normal LV size and systolic function, normal RVSP. - Patient started on low dose heparin w/p bolus in ED--given significant change in troponin, will order heparin bolus. - Cardiology consulted, appreciate their assistance and recommendations with this patient--> patient to assistant laboratory director this afternoon. (2) Rheumatoid arthritis: Plan: - Continue leflunomide. (3) Hypertension: Plan: - Continue losartan, doxazosin, amlodipine. (4) Multiple sclerosis: Plan - Admit to PCU. - SCDs, heparin gtt for VTE ppx. - Full Code. History of Present Illness Chief Complaint: chest pain x 4 hours Primary Care Provider: Reg Estrella MD Flower Álvarez is a 71 y/o with a past medical history significant for MS, rheumatoid arthritis, hypothyroidism, hypertension, and GERD who is presenting today with chest pain. She woke up this morning around 6 AM drenched in sweat with chest pressure in the center of her chest with radiation to her back. She took full dose aspirin at home and called 911. She received a dose of nitro via EMS which minimally alleviated her symptoms, as well as an additional dose in our ED. About an hour after the second chest nitro chest pain seemingly went away quickly patient was ambulating around her room without any chest pain, shortness of breath, or palpitations. She has no history of heart disease or dysrhythmias. She was in her usual state of health this weekend and exercises 2x/week at the local [place] without chest pain or shortness of breath. On presentation she is 89% on room air, placed on 2 L NC, she has been somewhat hypertensive in ED, otherwise VSS, wnl. Troponin elevated at 112. EKG with nonspecific T wave abnormalities, chest CTA without evidence of pulmonary emboli, pneumonia, dissection. There is mild left axillary lymphadenopathy, mild emphysema, few subcentimeter pulmonary nodules within left upper lobe. Allergies Allergy/AdvReac Type Severity Reaction Status Date / Time vancomycin Allergy Severe HIVES Verified 12/18/17 16:19 Penicillins Allergy Mild . Verified 04/02/14 14:49 hydroxychloroquine Allergy Unknown HIVES Verified 12/18/17 16:19 latex Allergy Unknown HIVES Verified 12/18/17 16:19 Home Medications Medication Instructions Recorded Confirmed Type CALCIUM CARBONATE (OS-ALEX 500) 500 mg PO DAILY #0 tabs 12/18/17 10/12/22 History CHOLECALCIFEROL (VITAMIN D3) 1,000 units PO DAILY 90 days #0 12/18/17 10/12/22 History tabs CYCLOBENZAPRINE HCL (FLEXERIL) 1 tab PO HS 30 days #30 tabs 12/18/17 10/12/22 History CYCLOSPORINE (OPHTH) (RESTASIS) 1 drp OPB BID #0 BTLS 12/18/17 10/12/22 History DOXAZOSIN MESYLATE (CARDURA) 4 mg PO DAILY #0 tabs 12/18/17 10/12/22 History DULOXETINE HCL (CYMBALTA) 60 mg PO DAILY #0 caps 12/18/17 10/12/22 History FERROUS SULFATE (IRON) 1 tab PO DAILY ##0 12/18/17 10/12/22 History LEVOTHYROXINE SODIUM (SYNTHROID) 75 mcg PO DAILY #0 tabs 12/18/17 10/12/22 History LOSARTAN POTASSIUM (COZAAR) 100 mg PO DAILY #0 tabs 12/18/17 10/12/22 History OMEPRAZOLE (PRILOSEC) 20 mg PO DAILY #0 caps 12/18/17 10/12/22 History abatacept 125 mg/mL subcutaneous 125 mg subcut WK 10/12/22 10/12/22 History auto-injector (Orencia ClickJect) amlodipine 5 mg tablet 5 mg PO DAILY 10/12/22 10/12/22 History diazepam 10 mg tablet 10 mg PO TID PRN Anxiety 10/12/22 10/12/22 History ezetimibe 10 mg tablet 10 mg PO DAILY 10/12/22 10/12/22 History leflunomide 20 mg tablet 20 mg PO DAILY 10/12/22 10/12/22 History sulfasalazine 500 mg tablet 1,000 mg PO BID 10/12/22 10/12/22 History Past Med/Surg History Medical History (Updated 10/12/22 @ 22:03 by Willard Conley MD) Chest pain Dyslipidemia GERD (gastroesophageal reflux disease) Hypertension Hypothyroidism Multiple sclerosis Rheumatoid arthritis Surgical History History of cervical spinal surgery History of cholecystectomy Social History Smoking Status: Former smoker Hx Alcohol Use: No Hx Substance Use: No Preferred Language: German Communication Ability: Effective Station Cashier Required: No Beliefs That Will Affect Care: None Current Living Situation: Alone Feels Safe at Home: Yes Assistive Devices: None Review of Systems Review of Systems: Constitutional: No fever/chills, weakness, fatigue, myalgias, anorexia, night sweats Eyes: No diplopia, no worsening or blurred vision ENT: normal hearing, no trouble swallowing Respiratory: No cough, sputum, dyspnea at rest or on exertion Cardiovascular: chest pressure radiating to back with diaphoresis upon waking up this AM now resolved; no palpitations. Abdomen: No pain, nausea, vomiting, diarrhea or constipation : Denies dysuria, hematuria, increased urgency/frequency, urinary retention Musculoskeletal: No joint pain, calf pain, swelling Neurologic: No weakness, numbness/tingling, or balance problems Psychiatric: No anxiety or depression Skin: No rash or itch Physical Exam Physical Exam: General: awake, alert, no apparent distress Head: Normocephalic, atraumatic ENT: PERRL, EOMI, no pharyngeal exudate, mucous membranes moist Chest: Clear to auscultation, on room air, no adventitious breath sounds Cardiac: Regular rate and rhythm, no murmur, no JVD, normal peripheral pulses, good capillary refill Abdominal: NABS x 4 quadrants, soft, nontender to palpation, no rebound, guarding or tenderness Extremities: Normal inspection, no peripheral edema or erythema, calfs nontender to palpation Psych: Normal mood and affect Neuro: AAO x 3, strength intact bilaterally and rated 5/5, no motor deficits, speech is clear, no peripheral sensory deficits Skin: no rash or erythema Results & Data Results & Data ([facility]) Vital Signs (Past 12 Hours) Vital Signs Temp Pulse Pulse Resp BP BP Pulse Ox 10/12/22 09:36 78 20 157/84 H 96 10/12/22 09:01 77 18 151/73 H 94 10/12/22 08:19 83 20 95 10/12/22 08:19 89 L 10/12/22 08:19 36.4 C L 89 20 154/81 H 89 L O2 Del Method O2 Flow Rate 10/12/22 09:36 Nasal Cannula 2 10/12/22 09:01 Room Air 2 10/12/22 08:19 Nasal Cannula 2 10/12/22 08:19 Room Air 0 10/12/22 08:19 Room Air Laboratory Results Abnormal lab results 10/12/22 10/12/22 Range/Units 08:12 08:12 RDW Std Deviation 46.9 H (36.4-46.3) fL Potassium 3.4 L (3.5-5.1) mmol/L Glucose 101 H (70-99(Fasting)) mg/dl Troponin I High Sens 112.1 H* (0-14) pg/ml Diagnostic Findings Chest X-Ray 10/12/22 08:18 XR chest 1V portable HISTORY: Nausea. Atypical Chest pain, nonspecific COMPARISON: Chest 12/18/2017. FINDINGS: No pneumothorax. No pleural effusions. No focal lung consolidations to suggest pneumonia. No evidence for pulmonary edema. The heart is normal in size. There are bilateral total shoulder arthroplasties. IMPRESSION: No acute process. ACT 112: Negative or not required by law. Electronically signed by: Erick Rojo M.D. 10/12/2022 9:22 AM Chest CTA 10/12/22 08:36 CHEST CTA for PULMONARY ARTER[address] DOSE: 836.46 mGy.cm HISTORY: Atypical chest pain. Hypoxia. TECHNIQUE: Multiaxial CT images of the chest were performed following the intravenous administration of contrast to evaluate the pulmonary arteries. Maximal intensity projection images were also obtained. A dose lowering technique was utilized adhering to the principles of ALARA. COMPARISON STUDY: None. FINDINGS: The visualized liver, spleen, and adrenal glands are unremarkable. Mild to moderate degenerative disc disease within the thoracic spine. Normal caliber esophagus. Small hiatus hernia. No pleural or pericardial effusions. No mediastinal or hilar lymphadenopathy. The heart is normal in size. There is mild left axillary lymphadenopathy. Dominant axillary lymph nodes measure up to 1.7 x 1.2 cm. Normal caliber thoracic aorta with no evidence for a dissection. Moderate coronary artery calcifications are noted. The majority of the subsegmental pulmonary arteries are nondiagnostic due to the respiratory motion artifact and suboptimal timing of contrast. However, the remaining pulmonary arteries show no filling defects to suggest a pulmonary embolus. No pneumothorax. Mild central bronchial wall thickening is noted. Mild emphysema. A 5 mm groundglass nodule within the left upper lobe on image 211. A 4 mm subpleural nodule within the left upper lobe abutting the major fissure on image 223. A 2 mm left apical pulmonary nodule on image 259. A few small bibasilar linear densities likely representing scarring or subsegmental atelectasis. Otherwise, no focal lung consolidations to suggest a pneumonia. No evidence for pulmonary edema. Old, healed right-sided rib fractures. IMPRESSION: 1. No evidence for a pulmonary embolus. 2. Mild left axillary lymphadenopathy. [address] follow-up recommended to ensure resolution of this abnormality. 3. No focal lung consolidations to suggest a pneumonia. 4. Mild emphysema. 5. A few subcentimeter pulmonary nodules within the left upper lobe measure up to 5 mm. Please refer to the chart below. Please refer to below summary of Fleischner criteria recommendations for follow- up of incidental CT nodules (Santiago Huff, Guidelines for management of small pulmonary nodules detected on CT scans: A statement from the Fleischner Society, Radiology 237: [phone].) SOLID NODULES Solitary nodule size: <6 mm * Low risk patients: no follow-up needed * high risk patients: optional CT at 12 months Solitary nodule size: 6-8 mm * Low risk patients: follow-up at 6-12 months, then consider further follow-up at 18-24 months * high risk patients: initial follow-up CT at 6-12 months and then at 18-24 months if no change Solitary nodule size: >8 mm * either low or high risk patients - consider follow-up CT at 3 months, and/or CT-PET, and/or biopsy Multiple nodules size: <6 mm * Low risk patients: no routine follow-up * high risk patients: optional CT at 12 months Multiple nodules size: 6-8 mm * Low risk patients: follow-up at 3-6 months, then consider further follow-up at 18-24 months * high risk patients: follow-up at 3-6 months, then at 18-24 months if no change Multiple nodules size: >8 mm * Low risk patients: follow-up at 3-6 months, then consider further follow-up at 18-24 months * high risk patients: follow-up at 3-6 months, then at 18-24 months if no change Note: newly detected indeterminate nodule in persons 35 years of age or older. * Low risk patients: minimal or absent history of smoking and/or other known risk factors * high risk patients: history of smoking or of other known risk factors (e.g. first degree relative with lung cancer, or exposure to asbestos, radon, uranium) * if a nodule up to 8 mm is partly solid or is ground glass further follow-up is required after 24 months to exclude possible slow growing adenocarcinoma (MATTHEW) SUBSOLID NODULES Solitary pure ground-glass nodule * nodule size <6 mm - no CT follow-up required * nodule size >=6 mm - follow-up CT at 6-12 months, then every 2 years until 5 years Solitary part-solid nodule * nodule size <6 mm - no CT follow-up required * nodule size >=6 mm - follow-up CT at 3-6 months. If unchanged, and solid component remains <6 mm, then annual follow-up for 5 years Multiple subsolid nodules * nodule size <6 mm - follow-up CT at 3-6 months, consider further follow-up at 2 and 4 years if stable * nodule size >=6 mm - follow-up CT at 3-6 months, subsequent management based on the most suspicious nodule(s) ACT 112: Positive. There are findings on this exam that require communication between the performing entity and the patient following Patient Test Result Information Act ([place] Act 112) guidelines. Electronically signed by: Erick Rojo M.D. 10/12/2022 11:23 AM ECG Additional Comments: Sinus rhythm with occasional Premature ventricular complexes Nonspecific T wave abnormality Abnormal ECG When compared with ECG of 18-DEC-2017 15:09, Premature ventricular complexes are now Present Code Status & VTE Plan Code Status Full Code. Supervising Physician Co-Signing Physician Notes I personally saw and examined the patient. I verified all gonzales points and agree with Kylie Fraser PA-C with the following exceptions and/or additions: 71-year-old female presents to the ER with typical chest pain and high- sensitivity troponin 112. Already took aspirin at home. Heparin IV low-dose with bolus given. Discussed with cardiology and taken for cardiac catheterization. Patient was seen prior to cardiac catheterization and was chest pain-free. Patient was also seen after cardiac catheterization and remains chest pain-free. O/E Alert & Ox3, HS RRR, no murmurs, Chest CTAB, Abdo SNT A/P NSTEMI - Unable to perform intervention with cardiac cath therefore will optimize medications. ASA given prior to arrival, continue 81mg PO daily. Start clopidogrel 75mg PO daily (300mg loading dose given today), metoprolol tartrate 25mg PO BID, nitroglycerin 2% 1 inch nitro paste. Restart on heparin drip per cardiology recommendations. PG Care Time/CCT Total # of Minutes Spent Total Time Spent with Patient: Total time spent is greater than 50% in coordination of care (as documented) at patient's floor/unit and/or counseling patient: Coding Level of Care Code INT OBSERVATION CARE 70M LVL 3 Diagnoses Acute non-ST elevation myocardial infarction (NSTEMI) I21.4 Rheumatoid arthritis M06.9 Hypertension I10 Multiple sclerosis G35
[2022-10-12] MEDS ORDERED: HEPARIN SODIUM/DEXTROSE 25,000 UNITS/500 ML BAG IV SCH ×2 (11:45→13:15)
[2022-10-12] MEDS ORDERED: Heparin IV Adult Wt-Based Low-Dose WITH Bolus Protocol IV STA (12:58)
--- NOTE | 2022-10-12 13:09 | Pre Anesthesia Assessment ---
Date of Service October 12, 2022 Pre Sedation Assessment Vital Signs Temp Pulse Pulse Resp BP BP Pulse Ox 10/12/22 12:30 84 20 156/77 H 96 10/12/22 11:30 80 23 154/79 H 97 10/12/22 11:21 82 22 150/68 H 97 10/12/22 11:12 99 H 17 194/80 H 90 10/12/22 09:36 78 20 157/84 H 96 10/12/22 09:01 77 18 151/73 H 94 10/12/22 08:19 83 20 95 10/12/22 08:19 89 L 10/12/22 08:19 36.4 C L 89 20 154/81 H 89 L O2 Del Method O2 Flow Rate 10/12/22 12:30 10/12/22 11:30 10/12/22 11:21 10/12/22 11:12 10/12/22 09:36 Nasal Cannula 2 10/12/22 09:01 Room Air 2 10/12/22 08:19 Nasal Cannula 2 10/12/22 08:19 Room Air 0 10/12/22 08:19 Room Air Cardiovascular RRR, no murmur, no edema Respiratory normal respiratory effort, lungs clear to auscultation Pre-Sedation Airway Assessment Smoking Status: Former smoker Mallampati Class: III ASA: ASA3 NPO Status Date of Last Intake of Fluids: 10/11/22 Time of Last Intake of Fluids: 18:00 Date of Last Intake of Solid Food: 10/11/22 Time of Last Intake of Solid Foods: 18:00 Procedure Planning Contraindications for Sedation: none Current Medications Reviewed: Yes Notes The planned sedation has been discussed with the patient. Informed Consent was obtained. I have identified the patient, determined the appropriateness of sedation and have assessed the patient immediately prior to the procedure. All medicine(s) and interventions are by my order.
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
[2022-10-12] MEDS ORDERED: niCARdipine HCL INJ 2.5 MG/ML 10 ML AMP ONE ×2 (13:12→15:21)
[2022-10-12] MEDS ORDERED: fentaNYL citrate 100 MCG/2 ML VIAL ONE ×2 (13:12→15:21)
[2022-10-12] MEDS ORDERED: MIDAZOLAM HCL 1 MG/ML 2ML VIAL ONE ×2 (13:12→15:21)
[2022-10-12] MEDS ORDERED: NITROGLYCERIN/D5W 100MCG/ML 20ML SYR ONE ×2 (13:12→15:22)
[2022-10-12] MEDS ORDERED: HEPARIN (PORCINE) 1000 UNIT/ML 10 ML (CATH LAB USE ONLY) ONE ×3 (13:12→16:23)
[2022-10-12] MEDS ORDERED: HEPARIN SOD (PORCINE) 1000 UNIT/ML IV ONE (13:13)
--- NOTE | 2022-10-12 13:40 | XCELERA ---
[id number]
--- NOTE | 2022-10-12 16:44 | Cardiac Catheterization ---
[facility] Data: Electric Refrigerator Preparer Cardiac Status Clinical evaluation leading to the procedure CAD Presenation: Non STEMI Anginal Classification: CCS IV Heart Failure: No Cardiogenic Shock within 24 Hours: No Cardiac Arrest within 24 Hours: No Imaging Studies Past 6 Months: Yes Stress Studies Past 6 Months: No Coronary Anatomy Dominant: Right Diagnostic Physicians Name: Willard Conley MD Status: Elective Closure Device Percutaneous Entry Location: Radial Closure Device: Radial Band Recommendations: Management Recommendatons Cardiac Cath Procedure Full Procedure Date October 12, 2022 Pre-Procedure Diagnosis Pre-Procedure Diagnosis: Non STEMI AUC Score AUC Score: 8 Post-Procedure Diagnosis Post-Procedure Diagnosis: Severe CAD Procedure(s) Performed Procedure(s) Performed: Coronary Angiography and Left Heart Cath Cage Tender Willard Conley MD Digital Marketing Intern(s) Yannick Estimated Blood Loss Estimated Blood Loss: < 25 ml Medication(s) Medication(s): Fentanyl, Heparin, Hydralazine, Nicardipine and Versed Summary of Findings Procedures: 1. Coronary angiography 2. Left heart catheterization 3. Moderate sedation Indication: 71-year-old female with a history significant for hypertension and dyslipidemia who presented with angina and elevated troponins, consistent with NSTEMI. Coronary angiography: 1. Left main: No significant CAD. 2. Left anterior descending: Early mid LAD 30%. Mid LAD 50%. Distal LAD 20 to 30%. Originating from the mid LAD, second septal general manager 80 to 90% ostial CAD. Large diagonal ostial 30%. MAGALY-3 flow throughout the LAD. 3. Circumflex: Mid circumflex 10 to 20%. Large OM without significant CAD. 4. Right coronary artery: RCA is large and dominant. Luminal irregularities throughout the proximal RCA. Mid RCA diffuse 30%. PDA and PL without significant CAD. Left heart catheterization: 1. Left ventriculography was not performed. 2. No aortic stenosis. Peak to peak gradient across the aortic valve is 0. 3. Normal LVEDP; 12 mmHg. Moderate sedation: 1. Sedation start time: 3:36 PM 2. Sedation end time: 4:14 PM Procedural notes: 1. Patient initially received small dose of sedation at 1:47 PM and while attempting to obtain right radial access, there was a code heart alert/STEMI. Therefore, she was removed from the table before access, to allow for care of the acute [place]. 2. Right radial arterial access was successfully attained when she returned to the Electric Refrigerator Preparer. 3. The right radial artery had acute circular band, which was able to be traversed with Glidewire and straightened during the procedure. She tolerated the procedure well. Impression: 1. Severe CAD involving second septal general manager. 2. Otherwise, mild and moderate nonobstructive CAD. 3. No aortic stenosis. 4. Normal left-sided filling pressure. Plan: 1. Initially, plan was to attempt IVUS of the mid LAD however angiographically, it did not appear to be severe but rather moderate. This decision was made given her presentation and NSTEMI. Unfortunately, IVUS equipment was nonfunctional when attempted. The decision was made to end the case. 2. Recommend medical therapy. 3. Risk factor modification. 4. Cardiac rehab. 5. Her daughter was updated throughout. Hemodynamics Rest Ao:: 178/84 Final Ao: 180/87 LV: 159/712 Recommendations Recommendations: Management Recommendatons Specimens Specimens: None Radiation Exposure (mGy) 1337 mGy. Fluoro time 13.1 min. Contrast (mls) 60 ml Procedural Complication(s) None Disposition PCU I attest to the content of the Intraoperative Record and any orders documented therein. Any exceptions are noted below. [facility] Card Cath Procedure Codes Cardiac Catheterization Procedure 1: Cardiovascular Cath Procedures: 09823 Coronaries and LHC (+/-LV) Moderate Sedation Procedure 1: Sedation/Anesthesia: 09225 Mod Sedation by the same physician;Init15 Min Child Age 5 & Up Procedure 2: Sedation/Anesthesia: 76101 Mod Sedation by the same physician; Ea [id number] Minutes Procedure 3: Sedation/Anesthesia: 08396 Mod Sedation by the same physician; Ea [id number] Minutes PG Care Time/CCT Total # of Minutes Spent Total Time Spent with Patient: Total time spent is greater than 50% in coordination of care (as documented) at patient's floor/unit and/or counseling patient:
--- NOTE | 2022-10-12 17:03 | Post Anesthesia Assessment ---
Date of Service October 12, 2022 Post Sedation Assessment Vital Signs Temp Pulse Pulse Resp BP BP Pulse Ox 10/12/22 13:13 84 20 156/77 H 96 10/12/22 12:30 84 20 156/77 H 96 10/12/22 11:30 80 23 154/79 H 97 10/12/22 11:21 82 22 150/68 H 97 10/12/22 11:12 99 H 17 194/80 H 90 10/12/22 09:36 78 20 157/84 H 96 10/12/22 09:01 77 18 151/73 H 94 10/12/22 08:19 83 20 95 10/12/22 08:19 89 L 10/12/22 08:19 36.4 C L 89 20 154/81 H 89 L O2 Del Method O2 Flow Rate 10/12/22 13:13 Room Air 10/12/22 12:30 10/12/22 11:30 10/12/22 11:21 10/12/22 11:12 10/12/22 09:36 Nasal Cannula 2 10/12/22 09:01 Room Air 2 10/12/22 08:19 Nasal Cannula 2 10/12/22 08:19 Room Air 0 10/12/22 08:19 Room Air Recovery Score Activity: Moves 4 extremities Respiration: Deep Breath/Cough Circulation: +/-20% PreAnes Value Consciousness: Fully Awake Oxygen Saturation: O2 needed for >90% Discharge Sedation Level of Care: Fast Track Phase II Post Sedation Plan On clinical assessment, the patient appears to have tolerated the sedation without complications. Patient is recovering as anticipated. Patient will continue to be monitored by nursing and may be discharged when sedation discharge criteria are met per below protocol. Upon Completions of procedure up to 15 minutes continue every 5 minute vital signs and the P.A.R. score; then discharge to a Phase I or Fast Track to Phase II per the following guidelines: * Discharge Patient to appropriate Phase II area if PAR is 8 or greater or return to pre- procedure baseline. The post - procedure orders will be as directed. * If PAR score is less than 8 or not return to pre-procedure baseline then patient will follow Phase I monitoring till PAR is reached for Phase II. The Phase I may be done in procedure room or may call to secure a Phase I area. * If naloxone or flumazenil are used for reversal, hold in Phase I for continued monitoring from when last reversal dose was given for a minimum of 60 minutes or longer pending the nurse and/or physician discretion of patient condition before discharge to Phase II. Please call the Sedation Physician to re-evaluate and complete post-note for discharge to Phase II area. Do NOT discharge from procedure sedation or Phase 1 until post- sedation evaluation note is complete by procedure /sedation MD Sedation Discharge Instructions to be given to the patient at discharge to home.
[2022-10-12] MEDS ORDERED: CLOPIDOGREL BISULFATE 300 MG TAB PO STA (17:20)
[2022-10-12] MEDS ORDERED: ALUMINUM/MAGNESIUM SUSP 30 ML UDC PO PRN (17:22)
[2022-10-12] MEDS ORDERED: POLYETHYLENE (MIRALAX) 17 GM PACK PO PRN (17:22)
[2022-10-12] MEDS ORDERED: NITROGLYCERIN 2% OINTMENT 30GM TUBE EXT PRN (17:22)
[2022-10-12] MEDS ORDERED: MoRPHine SULFATE 2 MG/ML CARP IV PRN (17:22)
[2022-10-12] MEDS ORDERED: ONDANSETRON INJ 2 MG/ML 2 ML VIAL IV PRN (17:22)
[2022-10-12] MEDS ORDERED: Heparin IV Adult Wt-Based Standard *NO* Bolus Protocol IV SCH (17:24)
[2022-10-12] MEDS ORDERED: NITROGLYCERIN 2% OINTMENT 30GM TUBE EXT SCH (18:15)
[2022-10-12] MEDS: ACETAMINOPHEN 325 MG TAB PO PRN (20:17)
[2022-10-12] MEDS: METOPROLOL TARTRATE 25 MG TAB PO SCH (20:18)
[2022-10-12] MEDS: CYCLOBENZAPRINE HCL 10 MG TAB PO SCH (20:18)
[2022-10-12] MEDS: ATORVASTATIN 40 MG TAB PO SCH (20:18)
[2022-10-12] MEDS ORDERED: amLODIPine BESYLATE 5 MG TAB PO PRN (21:00)
[2022-10-12] MEDS ORDERED: diazePAM 5 MG TABLET PO PRN (21:17)
[2022-10-12] MEDS: NITROGLYCERIN 2% OINTMENT 30GM TUBE EXT SCH (23:19)
[2022-10-12] MEDS ORDERED: POTASSIUM CHLORIDE CRTAB 20 MEQ TABCR PO STA (23:35)
[2022-10-13 00:33] LABS: Partial Thromboplastin Ratio 1.2; Partial Thromboplastin Time 33.3 Seconds (21.0-31.0)
[2022-10-13] MEDS ORDERED: NITROGLYCERIN 2% OINTMENT 30GM TUBE EXT STA (00:53)
[2022-10-13] MEDS: HEPARIN SODIUM/DEXTROSE 25,000 UNITS/500 ML BAG IV SCH ×2 (00:57→17:46)
[2022-10-13] MEDS: LEVOTHYROXINE SODIUM 75 MCG TABLET PO SCH (05:51)
[2022-10-13] MEDS: NITROGLYCERIN 2% OINTMENT 30GM TUBE EXT SCH ×2 (05:51→12:27)
[2022-10-13 07:24] LABS: Basophils # (auto) 0.07 K/uL (0-0.2); Basophils % (auto) 1.3 %; Eosinophils # (auto) 0.13 K/uL (0-0.50); Eosinophils % (auto) 2.5 %; Hematocrit (blood only) 37.7 % (34.1-44.9); Hemoglobin 12.4 g/dl (12.0-16.0); Immature Granulocytes # (auto) 0.01 K/uL (0.00-0.02); Immature Granulocytes % (auto) 0.2 %; Lymphocytes # (auto) 1.63 K/uL (1.2-3.4); Lymphocytes % (auto) 30.8 %; Mean Corpuscular Hgb Conc 32.9 g/dL (32.0-36.0); Mean Corpuscular Volume 97.4 fL (80.0-100.0); Mean Platelet Volume 9.6 fL (9.4-12.3); Monocytes # (auto) 0.51 K/uL (0.24-0.82); Monocytes % (auto) 9.6 %; Neutrophils # (auto) 2.95 K/uL (1.4-6.5); Neutrophils % (auto) 55.6 %; Platelet Count 317 K/uL (130-400); RDW Coefficient of Variation 13.2 % (11.5-14.5); RDW Standard Deviation 47.2 fL (36.4-46.3); Red Blood Count 3.87 M/uL (3.93-5.22)
[2022-10-13 07:37] LABS: Partial Thromboplastin Time 27.7 Seconds (21.0-31.0)
[2022-10-13] MEDS ORDERED: HEPARIN SOD (PORCINE) 1000 UNIT/ML IV ONE (08:00)
[2022-10-13] MEDS: ACETAMINOPHEN 325 MG TAB PO PRN ×2 (08:27→12:27)
[2022-10-13] MEDS: FERROUS SULFATE 325 MG TAB PO SCH (08:28)
[2022-10-13] MEDS: CALCIUM CARBONATE 1250MG TAB PO SCH (08:28)
[2022-10-13] MEDS: ASPIRIN 81 MG ECTAB PO SCH (08:28)
[2022-10-13] MEDS: DOXAZosin MESYLATE 4 MG TAB PO SCH (08:28)
[2022-10-13] MEDS: PANTOprazole 40 MG TAB PO SCH (08:28)
[2022-10-13] MEDS: DULoxetine HCL 60 MG CAP PO SCH (08:28)
[2022-10-13] MEDS: LOSARTAN POTASSIUM 50 MG TAB PO SCH (08:29)
[2022-10-13] MEDS: CLOPIDOGREL BISULFATE 75 MG TAB PO SCH (08:29)
[2022-10-13] MEDS: METOPROLOL TARTRATE 25 MG TAB PO SCH (08:29)
[2022-10-13] MEDS: CHOLECALCIFEROL 1,000 UNITS 25 MCG TAB PO SCH (08:29)
[2022-10-13 09:45] LABS: Estimated Average Glucose 68 mg/dl; Hemoglobin A1C < 4.0 % (4.5-5.6)
[2022-10-13 10:18] LABS: BUN Creatinine Ratio 14.5 (10-20); Calcium 9.1 mg/dl (8.5-10.1); Chol HDL Ratio 3.7 (0-5); Creatinine Clr Calc Pharmacy 67.5 ml/min; Est GFR (African American) 100.8 ml/min; Magnesium 2.3 mg/dl (1.7-2.4); Potassium 3.9 mmol/L (3.5-5.1); Troponin I High Sensitivity 4229.1 pg/ml (0-14)
--- NOTE | 2022-10-13 15:06 | Cardiology Progress Note ---
Date of Service October 13, 2022 Assessment & Plan (1) Acute non-ST elevation myocardial infarction (NSTEMI): (2) CAD (coronary artery disease): (3) Hypertension: (4) Dyslipidemia: Plan ASSESSMENT/PLAN: 1. NSTEMI: Medical management. Continue aspirin 81 mg daily. Continue Plavix 75 mg daily. Continue heparin for 48 hours. (Lab draws have been challenging and IV team had to use her leg this afternoon. Okay to switch to therapeutic Lovenox for the remainder of her hospital if needed.) Continue telemetry. Cardiac rehab on discharge. Continue beta-trinh and high-intensity statin therapy. 2. 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 Medical management recomme nded. Continue medical therapy as above. No further angina. 3. Dyslipidemia: LDL significantly elevated. Zetia has been replaced with high-intensity statin therapy. Mediterranean diet. 4. Hypertension: Blood pressure has been normotensive to hypertensive. Increase metoprolol to 50 mg twice daily. Continue losartan. May need additional therapy. 5. Disposition: Cardiology will continue to follow along. Plan of care communicated with Dr. Ruffin, primary hospitalist. Follow up with me in the office in 1-2 weeks from discharge. Can discharge tomorrow if continues to do well. Cardiac rehab. Admission and Anticipated Discharge Date Admission Date: October 12, 2022 Subjective Patient is seen this afternoon. She has not had any further chest discomfort since presentation. She denies shortness of breath, orthopnea, syncope, near- syncope, palpitations, or edema. She has ambulated with in her hospital room and did so without angina. She alone in her hospital room. IV team is having difficulty obtaining lab draws, specifically her PT for heparin drip. Physical Exam Physical Exam: Gen.: No acute distress. Alert and oriented. HEENT: Anicteric sclera. Neck: No appreciable JVD. Cardiac: No ventricular heave. Regular. Normal S1-S2. No murmurs, rubs, or gallops. Pulmonary: Clear to auscultation bilaterally without wheezes, rales, or rhonchi. Abdomen: Soft, nontender, nondistended, with normoactive bowel sounds. No bruits noted. Extremities: 2+ radial pulses bilaterally. Right radial cath site is clean, dry, and intact without erythema or discharge. There is ecchymosis noted. No hematoma. 2+ posterior tibialis pulses bilaterally. No edema or cyanosis. Psychiatric: Affect appears appropriate. Results & Data ([facility]) Vital Signs (Past 12 Hours) Vital Signs Temp Pulse Resp BP BP Pulse Ox O2 Del Method 10/13/22 11:37 36.6 C 89 17 161/80 H 93 Room Air 10/13/22 09:54 Room Air 10/13/22 07:22 36.8 C 81 19 174/91 H 92 Room Air 10/13/22 05:50 36.6 C 71 16 130/76 93 Room Air 10/13/22 03:21 36.5 C 75 16 129/79 94 Room Air Laboratory Results Laboratory Results - last 24 hr 10/12/22 10/12/22 10/13/22 21:13 23:18 07:03 WBC 5.30 RBC 3.87 L Hgb 12.4 Hct 37.7 MCV 97.4 MCH 32.0 MCHC 32.9 RDW Std Deviation 47.2 H RDW Coeff of Juaquin 13.2 Plt Count 317 MPV 9.6 Immature Gran % (Auto) 0.2 Neut % (Auto) 55.6 Lymph % (Auto) 30.8 Milam % (Auto) 9.6 Eos % (Auto) 2.5 Baso % (Auto) 1.3 Neut # (Auto) 2.95 Lymph # (Auto) 1.63 Milam # (Auto) 0.51 Eos # (Auto) 0.13 Baso # (Auto) 0.07 Immature Gran # (Auto) 0.01 APTT 33.3 H PTT Ratio 1.2 Sodium Potassium Chloride Carbon Dioxide Anion Gap BUN Creatinine Est Cr Clr Drug Dosing Est GFR ( Amer) Est GFR (Non-Af Amer) BUN/Creatinine Ratio Glucose Estimat Average Glucose Hemoglobin A1c Calcium Magnesium Troponin I High Sens 8830.6 H* D Triglycerides Cholesterol LDL Cholesterol, Calc VLDL Cholesterol, Calc HDL Cholesterol Cholesterol/HDL Ratio 10/13/22 10/13/22 10/13/22 07:03 07:03 07:03 WBC RBC Hgb Hct MCV MCH MCHC RDW Std Deviation RDW Coeff of Juaquin Plt Count MPV Immature Gran % (Auto) Neut % (Auto) Lymph % (Auto) Mil[place] % (Auto) Eos % (Auto) Baso % (Auto) Neut # (Auto) Lymph # (Auto) [place] # (Auto) Eos # (Auto) Baso # (Auto) Immature Gran # (Auto) APTT 27.7 PTT Ratio 1.0 Sodium 139 Potassium 3.9 Chloride 106 Carbon Dioxide 26 Anion Gap 7 BUN 10 Creatinine 0.69 Est Cr Clr Drug Dosing 67.5 Est GFR ( Amer) 100.8 Est GFR (Non-Af Amer) 87.0 BUN/Creatinine Ratio 14.5 Glucose 96 Estimat Average Glucose 68 Hemoglobin A1c < 4.0 L Calcium 9.1 Magnesium 2.3 Troponin I High Sens 4229.1 H* D Triglycerides 94 Cholesterol 198 LDL Cholesterol, Calc 125 VLDL Cholesterol, Calc 19 HDL Cholesterol 54 Cholesterol/HDL Ratio 3.7 10/13/22 14:31 WBC RBC Hgb Hct MCV MCH MCHC RDW Std Deviation RDW Coeff of Juaquin Plt Count MPV Immature Gran % (Auto) Neut % (Auto) Lymph % (Auto) Milam % (Auto) Eos % (Auto) Baso % (Auto) Neut # (Auto) Lymph # (Auto) [place]am # (Auto) Eos # (Auto) Baso # (Auto) Immature Gran # (Auto) APTT Pending PTT Ratio Pending Sodium Potassium Chloride Carbon Dioxide Anion Gap BUN Creatinine Est Cr Clr Drug Dosing Est GFR ( Amer) Est GFR (Non-Af Amer) BUN/Creatinine Ratio Glucose Estimat Average Glucose Hemoglobin A1c Calcium Magnesium Troponin I High Sens Triglycerides Cholesterol LDL Cholesterol, Calc VLDL Cholesterol, Calc HDL Cholesterol Cholesterol/HDL Ratio Diagnostic Findings Cardiac Cath 10/12/22: Coronary angiography: 1. Left main: No significant CAD. 2. Left anterior descending: Early mid LAD 30%. Mid LAD 50%. Distal LAD 20 to 30%. Originating from the mid LAD, second septal net software developer 80 to 90% ostial CAD. Large diagonal ostial 30%. MAGALY-3 flow throughout the LAD. 3. Circumflex: Mid circumflex 10 to 20%. Large OM without significant CAD. 4. Right coronary artery: RCA is large and dominant. Luminal irregularities throughout the proximal RCA. Mid RCA diffuse 30%. PDA and PL without significant CAD. Left heart catheterization: 1. Left ventriculography was not performed. 2. No aortic stenosis. Peak to peak gradient across the aortic valve is 0. 3. Normal LVEDP; 12 mmHg. Medications Administered Current Inpatient Medications Acetaminophen (Acetaminophen 325 Mg Tab) 650 mg PO Q4H PRN PRN Reason: Pain or Fever Stop: 11/11/22 17:21 Last Admin: 10/13/22 12:27 Dose: 650 mg Al Hydrox/Mg Hydrox/Simethicone (Aluminum/Magnesium Susp 30 Ml Udc) 15 ml PO Q4H PRN PRN Reason: Dyspepsia Stop: 11/11/22 17:21 Aspirin (Aspirin 81 Mg Ectab) 81 mg PO QAM [facility] Stop: 11/12/22 08:59 Last Admin: 10/13/22 08:28 Dose: 81 mg Atorvastatin Calcium (Atorvastatin 40 Mg Tab) 80 mg PO HS [facility] Stop: 11/11/22 20:59 Last Admin: 10/12/22 20:18 Dose: 80 mg Calcium Carbonate (Calcium Carbonate 1250mg Tab) 1,250 mg PO DAILY [facility] Stop: 11/12/22 08:59 Last Admin: 10/13/22 08:28 Dose: 1,250 mg Clopidogrel Bisulfate (Clopidogrel Bisulfate 75 Mg Tab) 75 mg PO QAM [facility] Stop: 11/12/22 08:59 Last Admin: 10/13/22 08:29 Dose: 75 mg Cyclobenzaprine HCl (Cyclobenzaprine Hcl 10 Mg Tab) 10 mg PO HS [facility] Stop: 11/11/22 20:59 Last Admin: 10/12/22 20:18 Dose: 10 mg Diazepam (Diazepam 5 Mg Tablet) 5 mg PO HS PRN PRN Reason: Anxiety Stop: 11/11/22 21:16 Doxazosin Mesylate (Doxazosin Mesylate 4 Mg Tab) 4 mg PO DAILY [facility] Stop: 11/12/22 08:59 Last Admin: 10/13/22 08:28 Dose: 4 mg Duloxetine HCl (Duloxetine Hcl 60 Mg Cap) 60 mg PO DAILY [facility] Stop: 11/12/22 08:59 Last Admin: 10/13/22 08:28 Dose: 60 mg Ferrous Sulfate (Ferrous Sulfate 325 Mg Tab) 325 mg PO DAILY [facility] Stop: 11/12/22 08:59 Last Admin: 10/13/22 08:28 Dose: 325 mg Heparin Sodium/Dextrose (Heparin Sodium/Dextrose) 25,000 units in 500 mls @ 26 mls/hr IV .[id number] [facility]; Protocol Stop: 11/11/22 17:44 Last Titration: 10/13/22 07:40 Dose: 1,300 units/hr, 26 mls/hr Levothyroxine Sodium (Levothyroxine Sodium 75 Mcg Tablet) 75 mcg PO DAILYBB [facility] Stop: 11/12/22 06:29 Last Admin: 10/13/22 05:51 Dose: 75 mcg Losartan Potassium (Losartan Potassium 50 Mg Tab) 100 mg PO DAILY [facility] Stop: 11/12/22 08:59 Last Admin: 10/13/22 08:29 Dose: 100 mg Metoprolol Tartrate (Metoprolol Tartrate 25 Mg Tab) 25 mg PO BID [facility] Stop: 11/11/22 20:59 Last Admin: 10/13/22 08:29 Dose: 25 mg Miscellaneous (Order Awaiting Action: Restasis 0.05% Opthalmic Emulsion) 1 each N/A QS [facility] Stop: 11/12/22 00:00 Last Admin: 10/13/22 08:29 Dose: 1 each Morphine Sulfate (Morphine Sulfate 2 Mg/Ml Carp) 2 mg IV Q30M PRN PRN Reason: Chest Pain Stop: 10/26/22 17:21 Nitroglycerin (Nitroglycerin Sl 0.4 Mg/Tab Tab) 0.4 mg SL UD PRN PRN Reason: Chest Pain Stop: 11/11/22 08:35 Last Admin: 10/12/22 08:39 Dose: 0.4 mg Nitroglycerin (Nitroglycerin 2% Ointment 30gm Tube) 1 inch EXT Q6H [facility] Stop: 11/11/22 23:29 Last Admin: 10/13/22 12:27 Dose: 1 inch Ondansetron HCl (Ondansetron Inj 2 Mg/Ml 2 Ml Vial) 4 mg IV Q6H PRN PRN Reason: Nausea Stop: 11/11/22 17:21 Pantoprazole Sodium (Pantoprazole 40 Mg Tab) 40 mg PO DAILY [facility] Stop: 11/12/22 08:59 Last Admin: 10/13/22 08:28 Dose: 40 mg Polyethylene Glycol (Polyethylene (Miralax) 17 Gm Pack) 17 gm PO DAILY PRN PRN Reason: Constipation Stop: 11/11/22 17:21 Vitamin D (Cholecalciferol 1,000 Units 25 Mcg Tab) 1,000 units PO DAILY [facility] Stop: 11/12/22 08:59 Last Admin: 10/13/22 08:29 Dose: 1,000 units PG Care Time/CCT Total # of Minutes Spent Total Time Spent with Patient: Total time spent is greater than 50% in coordination of care (as documented) at patient's floor/unit and/or counseling patient: Coding Level of Care Code 19807 Office/Outpt Visit, Est Diagnoses Acute non-ST elevation myocardial infarction (NSTEMI) I21.4 CAD (coronary artery disease) I25.10 Hypertension I10 Dyslipidemia E78.5
--- NOTE | 2022-10-13 15:13 | Hospitalist Progress Note ---
Date of Service October 13, 2022 Assessment & Plan (1) Acute non-ST elevation myocardial infarction (NSTEMI): Plan: - Onset of central chest pain with radiation to back 6AM this morning with associated diaphoresis. - Initial trop 112, EKG with some nonspecific T wave abnormalities, chest pain alleviated 1 hour after 2nd nitro dose/before morphine. - peaked trop at 8000 1 - Echo: EF 60-65%, severe hypokinesis on base of mid inferoseptum, no LVH, normal LV size and systolic function, normal RVSP. - Patient started on low dose heparin - cardiology want for 48 h-- no iv access- now switching to sc Lovenox -. -s/p left heart cath 10/12--- an ostial 80 % lesion, mild to moderate LAD non obstructing Med m/t (2) Rheumatoid arthritis: Plan: - Continue leflunomide and sulfasalazine. (3) Hypertension: Plan: - Continue losartan, doxazosin, amlodipine. Now metoprolol added (4) Multiple sclerosis: Plan: stable , ambualtory (5) Dyslipidemia: Plan: lipitor 80 mg hs started Plan dsicharge in am after ambulating, 48 h post heparin to finish tomorrow - Full Code. Admission and Anticipated Discharge Date Admission Date: October 12, 2022 Subjective at 1230 h, no complaints, no dyspnea/ CP/n/v/ orthopnea/PND Has MS and RA- significant disability using hands for ADL s, morning stiffness positive b/l shoulder replacements No know CAD. mood good, no falls, Physical Exam Physical Exam: ALERT, WELL LOOKING, SITTING ON CHAIR BY HALF EATEN LUNCH TRAY Lucid historian, moist tongue, anicteric sclerae Chest CTA CVS: S1 S2 RRR Abd : non tender Ext : no c/c/edema, prominent ulnar deformities L hand digits swan neck deformiity R second finger and other mcp joints of the hand DOCK ATTENDANT Results & Data Results & Data ([facility]) Vital Signs (Past 12 Hours) Vital Signs Temp Pulse Resp BP BP Pulse Ox O2 Del Method 10/13/22 11:37 36.6 C 89 17 161/80 H 93 Room Air 10/13/22 09:54 Room Air 10/13/22 07:22 36.8 C 81 19 174/91 H 92 Room Air 10/13/22 05:50 36.6 C 71 16 130/76 93 Room Air 10/13/22 03:21 36.5 C 75 16 129/79 94 Room Air Laboratory Results 10/13/22 10/13/22 10/13/22 07:03 07:03 07:03 WBC RBC Hgb Hct MCV MCH MCHC RDW Std Deviation RDW Coeff of Juaquin Plt Count MPV Immature Gran % (Auto) Neut % (Auto) Lymph % (Auto) [place] % (Auto) Eos % (Auto) Baso % (Auto) Neut # (Auto) Lymph # (Auto) [place] # (Auto) Eos # (Auto) Baso # (Auto) Immature Gran # (Auto) APTT 27.7 PTT Ratio 1.0 Sodium 139 Potassium 3.9 Chloride 106 Carbon Dioxide 26 Anion Gap 7 BUN 10 Creatinine 0.69 Est Cr Clr Drug Dosing 67.5 Est GFR ( Amer) 100.8 Est GFR (Non-Af Amer) 87.0 BUN/Creatinine Ratio 14.5 Glucose 96 Estimat Average Glucose 68 Hemoglobin A1c < 4.0 L Calcium 9.1 Magnesium 2.3 Troponin I High Sens 4229.1 H* D Triglycerides 94 Cholesterol 198 LDL Cholesterol, Calc 125 VLDL Cholesterol, Calc 19 HDL Cholesterol 54 Cholesterol/HDL Ratio 3.7 10/13/22 10/12/22 10/12/22 07:03 23:18 21:13 WBC 5.30 RBC 3.87 L Hgb 12.4 Hct 37.7 MCV 97.4 MCH 32.0 MCHC 32.9 RDW Std Deviation 47.2 H RDW Coeff of Juaquin 13.2 Plt Count 317 MPV 9.6 Immature Gran % (Auto) 0.2 Neut % (Auto) 55.6 Lymph % (Auto) 30.8 [place] % (Auto) 9.6 Eos % (Auto) 2.5 Baso % (Auto) 1.3 Neut # (Auto) 2.95 Lymph # (Auto) 1.63 [place] # (Auto) 0.51 Eos # (Auto) 0.13 Baso # (Auto) 0.07 Immature Gran # (Auto) 0.01 APTT 33.3 H PTT Ratio 1.2 Sodium Potassium Chloride Carbon Dioxide Anion Gap BUN Creatinine Est Cr Clr Drug Dosing Est GFR ( Amer) Est GFR (Non-Af Amer) BUN/Creatinine Ratio Glucose Estimat Average Glucose Hemoglobin A1c Calcium Magnesium Troponin I High Sens 8830.6 H* D Triglycerides Cholesterol LDL Cholesterol, Calc VLDL Cholesterol, Calc HDL Cholesterol Cholesterol/HDL Ratio PG Care Time/CCT Total # of Minutes Spent Total Time Spent with Patient: Total time spent is greater than 50% in coordination of care (as documented) at patient's floor/unit and/or counseling patient: Coding Level of Care Code 72113 Subseq Hosp Care Lvl 2 Diagnoses Acute non-ST elevation myocardial infarction (NSTEMI) I21.4 Rheumatoid arthritis M06.9 Hypertension I10 Multiple sclerosis G35 Dyslipidemia E78.5
[2022-10-13 15:18] LABS: Partial Thromboplastin Ratio 4.1
[2022-10-13 15:22] LABS: Partial Thromboplastin Time 114.1 Seconds (21.0-31.0)
[2022-10-13] MEDS: ENOXAPARIN 80 MG/0.8 ML SYR SQ SCH (16:30)
[2022-10-13] MEDS: METOPROLOL TARTRATE 50 MG TAB PO SCH (20:59)
[2022-10-13] MEDS: ATORVASTATIN 40 MG TAB PO SCH (21:00)
[2022-10-13] MEDS: CYCLOBENZAPRINE HCL 10 MG TAB PO SCH (21:00)
--- NOTE | 2022-10-13 21:57 | Electrocardiogram Report ---
Test Reason : Blood Pressure : / mmHG Vent. Rate : 095 BPM Atrial Rate : 095 BPM P-R Int : 132 ms QRS Dur : 076 ms QT Int : 372 ms P-R-T Axes : 022 041 072 degrees QTc Int : 467 ms Sinus rhythm with occasional Premature ventricular complexes Nonspecific ST abnormality Abnormal ECG When compared with ECG of 18-DEC-2017 15:09, Premature ventricular complexes are now Present Confirmed by Willard Conley ([id number]) on 10/13/2022 9:57:21 PM Referred By: Confirmed By:Willard Conley
--- NOTE | 2022-10-13 22:42 | Electrocardiogram Report ---
Test Reason : Blood Pressure : / mmHG Vent. Rate : 085 BPM Atrial Rate : 085 BPM P-R Int : 138 ms QRS Dur : 068 ms QT Int : 370 ms P-R-T Axes : 041 032 030 degrees QTc Int : 440 ms Normal sinus rhythm Normal ECG When compared with ECG of 12-OCT-2022 08:03, Premature ventricular complexes are no longer Present Nonspecific T wave abnormality no longer evident in Lateral leads Confirmed by Willard Conley ([id number]) on 10/13/2022 10:41:46 PM Referred By: REFERRED SELF Confirmed By:Willard Conley
[2022-10-14] MEDS: LEVOTHYROXINE SODIUM 75 MCG TABLET PO SCH (05:58)
[2022-10-14] MEDS: ENOXAPARIN 80 MG/0.8 ML SYR SQ SCH (05:58)
[2022-10-14] MEDS: CHOLECALCIFEROL 1,000 UNITS 25 MCG TAB PO SCH (09:47)
[2022-10-14] MEDS: CALCIUM CARBONATE 1250MG TAB PO SCH (09:47)
[2022-10-14] MEDS: LOSARTAN POTASSIUM 50 MG TAB PO SCH (09:48)
[2022-10-14] MEDS: FERROUS SULFATE 325 MG TAB PO SCH (09:48)
[2022-10-14] MEDS: ASPIRIN 81 MG ECTAB PO SCH (09:48)
[2022-10-14] MEDS: CLOPIDOGREL BISULFATE 75 MG TAB PO SCH (09:48)
[2022-10-14] MEDS: PANTOprazole 40 MG TAB PO SCH (09:48)
[2022-10-14] MEDS: DULoxetine HCL 60 MG CAP PO SCH (09:48)
[2022-10-14] MEDS: METOPROLOL TARTRATE 50 MG TAB PO SCH (09:48)
[2022-10-14] MEDS: DOXAZosin MESYLATE 4 MG TAB PO SCH (09:48)
--- NOTE | 2022-10-14 11:22 | Discharge Summary ---
Date of Service October 14, 2022 Admission HPI Per Admitting Provider Flower Álvarez is a 71 y/o with a past medical history significant for MS, rheumatoid arthritis, hypothyroidism, hypertension, and GERD who is presenting today with chest pain. She woke up this morning around 6 AM drenched in sweat with chest pressure in the center of her chest with radiation to her back. She took full dose aspirin at home and called 911. She received a dose of nitro via EMS which minimally alleviated her symptoms, as well as an additional dose in our ED. About an hour after the second chest nitro chest pain seemingly went away quickly patient was ambulating around her room without any chest pain, shortness of breath, or palpitations. She has no history of heart disease or dysrhythmias. She was in her usual state of health this weekend and exercises 2x/week at the local [facility] without chest pain or shortness of breath. On presentation she is 89% on room air, placed on 2 L NC, she has been somewhat hypertensive in ED, otherwise VSS, wnl. Troponin elevated at 112. EKG with nonspecific T wave abnormalities, chest CTA without evidence of pulmonary emboli, pneumonia, dissection. There is mild left axillary lymphadenopathy, mild emphysema, few subcentimeter pulmonary nodules within left upper lobe. Principal Diagnosis Non-ST elevation CO Discharge Exam General-alert and oriented x3, no fevers, no chills HEENT-head atraumatic and normocephalic, pupils equal and reactive to light, extraocular muscles intact Neck-no lymphadenopathy or thyromegaly, trachea midline Chest-clear to auscultation percussion. No rales wheezing or rhonchi Cardiac-regular rate and rhythm, normal S1 and S2 Abdomen-normal bowel sounds, nontender, no hepatosplenomegaly Extremities-no cyanosis, clubbing, or edema Neuro-cranial nerves II through XII intact, motor and sensory function within normal limits, strength symmetrical , no focal deficits Psych-normal affect, normal mood Discharge Data Allergies Allergy/AdvReac Type Severity Reaction Status Date / Time vancomycin Allergy Severe HIVES Verified 12/18/17 16:19 Penicillins Allergy Mild . Verified 04/02/14 14:49 hydroxychloroquine Allergy Unknown HIVES Verified 12/18/17 16:19 latex Allergy Unknown HIVES Verified 12/18/17 16:19 Consultations 10/12/22 11:28 ED Decision to Admit Stat 10/12/22 17:22 Consult Cardiology Routine Procedures Performed Operation Date: 10/12/22 13:30 Actual Procedures s Cineradiography w/Routine Exam - Willard Conley MD p Cath, Left with Cors and Vent - Willard Conley MD Ordered Studies 10/12/22 08:36 CT angio chest PE protocol Stat 10/12/22 13:02 CL Cath Imgs for PACS use only Stat Hospital Course (1) Acute non-ST elevation myocardial infarction (NSTEMI): - Onset of central chest pain with radiation to back 6AM on the morning of admission with associated diaphoresis. - Initial trop 112, EKG with some nonspecific T wave abnormalities, chest pain alleviated 1 hour after 2nd nitro dose/before morphine. - peaked trop at 8000 1 - Echo: EF 60-65%, severe hypokinesis on base of mid inferoseptum, no LVH, normal LV size and systolic function, normal RVSP. - Patient started on low dose heparin - cardiology want for 48 h-- no iv access- now switching to sc Lovenox -. -s/p left heart cath 10/12--- an ostial 80 % lesion, mild to moderate LAD non obstructing. No intervention performed Med management recommended by cardiology (2) Rheumatoid arthritis: Stable on leflunomide and sulfasalazine. (3) Hypertension: Stable on losartan, doxazosin, amlodipine. Now metoprolol added (4) Multiple sclerosis: stable , ambulatory (5) Dyslipidemia: lipitor 80 mg hs started Plan Home today, October 14. She will continue with cardiac rehabilitation and follow-up with cardiology in 1 to 2 weeks - Full Code. Total Time Total Time Spent Total Time Spent (In Minutes): 40 minutes Discharge Plan Discharge Items Patient Disposition: Home - Self-Care Reason For Visit: CHEST PAIN Discharge Diagnosis: Non-ST elevation CO Activity: Resume your previous activity Activity Comment: Avoid overexertion Non-emergency contact: Primary Care Provider and Lmft Call non-emergency contact if: you have any medication questions Follow-up/Referrals: Willard Conley MD [Physician] - 11/18/22 8:45 am Reg Estrella MD [Primary Care Provider] - Diet: Heart Healthy Addtl Attending Provider Instructions: ACTIVITY RECOMMENDATIONS: Excess manipulation of the wrist should be avoided for the next 24-48 hours. * No lifting over 2 pounds (approximately a 1/2 gallon of milk) with the utilized arm for 24 hours. * No strenuous activity such as bowling or tennis for 3 days. * Keep the site of the procedure covered with a bandage for 24 hours. *You may shower the day after the procedure. Do not take a tub bath or submerge the puncture site in water for the next 3 days. *Do not operate any motorized equipment for 3 days. SPECIAL CARE INSTRUCTIONS: The site may be slightly bruised and sore following your procedure. Should any of the following occur, contact the Dr. who performed your procedure. 1. Redness/inflammation, swelling, chills, or fever, or colored drainage at procedure site within 3-7 days after your procedure. 2. Coldness, discoloration, ongoing numbness, severe pain, or swelling. Expect mild tingling of hand and tenderness at the puncture site for up to three days. If this persists beyond three days, or other symptoms develop, notify the Dr. who performed your procedure. BLEEDING: If the procedure site on your wrist begins to bleed, do not panic 1. Place 1 or 2 fingers firmly just slightly above the insertion site to stop the bleeding. You may be able to feel your pulse as you hold pressure. 2. Lift your finger after 5 minutes to see if the bleeding has stopped. 3. Once the bleeding has stopped, gently wipe the wrist area clean with a bandage. * If the bleeding from your wrist does not stop after 10 minutes, or if there is a large amount of bleeding or spurting, call 911 (do not drive yourself to the hospital). SKIN IRRITATION: * You may experience some redness and/or swelling in the area where radiation was administered. If any skin irritation occurs, please contact your family physician. FOLLOW UP VISIT: Keep any scheduled doctor appointments. Pending Studies at Discharge: No Stand-Alone Forms: My [employer], Smoking Cessation Medications and DC Order Prescriptions: New atorvastatin 40 mg Tablet 80 mg PO HS Qty: 30 0RF clopidogrel 75 mg Tablet 75 mg PO QAM Qty: 30 0RF aspirin 81 mg Tablet,Delayed Release (Dr/Ec) 81 mg PO QAM Qty: 30 0RF metoprolol tartrate 50 mg Tablet 50 mg PO BID Qty: 60 0RF nitroglycerin [Nitrostat] 0.4 mg Tablet, Sublingual 0.4 mg sublingual UD PRN (Reason: chest pain) Qty: 25 0RF Continued CALCIUM CARBONATE (OS-ALEX 500) 1,250 MG tablet 500 mg PO DAILY Qty: 0 CHOLECALCIFEROL (VITAMIN D3) 1,000 UNIT tablet 1,000 units PO DAILY 90 Days Qty: 0 CYCLOBENZAPRINE HCL (FLEXERIL) 10 MG tablet 1 tab PO HS 30 Days Qty: 30 CYCLOSPORINE (OPHTH) (RESTASIS) 0.05 % EMU 1 drp OPB BID Qty: 0 DOXAZOSIN MESYLATE (CARDURA) 4 MG tablet 4 mg PO DAILY Qty: 0 DULOXETINE HCL (CYMBALTA) 60 MG capsule 60 mg PO DAILY Qty: 0 FERROUS SULFATE (IRON) 325 MG tablet 1 tab PO DAILY Qty: 0 LEVOTHYROXINE SODIUM (SYNTHROID) 75 MCG tablet 75 mcg PO DAILY Qty: 0 LOSARTAN POTASSIUM (COZAAR) 100 MG tablet 100 mg PO DAILY Qty: 0 OMEPRAZOLE (PRILOSEC) 20 MG CONTR REL CAP 20 mg PO DAILY Qty: 0 sulfasalazine 500 mg tablet 1,000 mg PO BID amlodipine 5 mg tablet 5 mg PO DAILY leflunomide 20 mg tablet 20 mg PO DAILY diazepam 10 mg tablet 10 mg PO TID PRN (Reason: Anxiety) ezetimibe 10 mg tablet 10 mg PO DAILY Orencia ClickJect 125 mg/mL auto-injector 125 mg SUBCUT WK Discharge Orders: Discharge Order (Routine); Ordered 10/14/22 Ordered By: Josep Cohen Admission Data Admit Date/Time: 10/12/22 12:02 Attending Provider: Josep Cohen Admit Provider: Kenneth Peters Primary Care Provider: Reg Estrella Other Providers: Kenneth Peters ; Willard Conley Other Interventions: Discharge Summary Assessment (RN) Last Done: 10/14/22 10:41 Coding Level of Care Code D/C DAY MANAGEMENT >30 MINS Diagnoses Acute non-ST elevation myocardial infarction (NSTEMI) I21.4 Rheumatoid arthritis M06.9 Hypertension I10 Multiple sclerosis G35 Dyslipidemia E78.5
--- NOTE | 2022-10-14 21:27 | Electrocardiogram Report ---
Test Reason : Blood Pressure : / mmHG Vent. Rate : 078 BPM Atrial Rate : 078 BPM P-R Int : 152 ms QRS Dur : 072 ms QT Int : 394 ms P-R-T Axes : 051 030 043 degrees QTc Int : 449 ms Sinus rhythm with Premature supraventricular complexes Otherwise normal ECG When compared with ECG of 12-OCT-2022 12:50, Premature supraventricular complexes are now Present Confirmed by Willard Conley ([id number]) on 10/14/2022 9:27:05 PM Referred By: REFERRED SELF Confirmed By:Willard Conley
--- NOTE | 2022-10-15 15:08 | Electrocardiogram Report ---
Test Reason : Blood Pressure : / mmHG Vent. Rate : 076 BPM Atrial Rate : 076 BPM P-R Int : 150 ms QRS Dur : 074 ms QT Int : 434 ms P-R-T Axes : 055 042 055 degrees QTc Int : 488 ms Normal sinus rhythm Prolonged QT When compared with ECG of 12-OCT-2022 18:44, Premature supraventricular complexes are no longer Present QT has lengthened Confirmed by Willard Conley ([id number]) on 10/15/2022 3:08:06 PM Referred By: REFERRED SELF Confirmed By:Willard Conley
== END 2022-10-14 14:20 | disposition home or self-care (01) ==
LOC: ED 08:00 → EDINP 08:00 → 2S 12:01 → SUATTDRO 12:02 → CC 13:10 → 2S 13:13